=== PATIENT | female | born 1985 | race African-American/Black ===

== ENCOUNTER 2016-04-12 13:38 | Outpatient (CLI) | payer MEDICAID ==
--- NOTE | 2016-04-12 14:00 | L&D Flow Sheet ---
LD Flowsheet Datetime Report Generated by CPN: 04/12/2016 14:00 Datetime: 04/12/2016 13:56 Vital Signs NBP Sys/Angie/Mean (mmHg): 104 (QS system process) : 66 (QS system process) : 80 (QS system process) Pulse: 96 (QS system process)
[2016-04-12 14:11] LABS: APPEARANCE,URINE SLIGHTLY-CLOUDY; BILIRUBIN,URINE NEGATIVE (NEGATIVE); GLUCOSE, URINE 50 mg/dL (NEGATIVE); KETONES,URINE NEGATIVE (NEGATIVE); LEUKOCYTE ESTERASE,URINE TRACE (NEGATIVE); NITRITE,URINE NEGATIVE (NEGATIVE); PROTEIN,URINE NEGATIVE (NEGATIVE); URINE SPECIFIC GRAVITY 1.011
[2016-04-12 14:27] LABS: URINE BARBITURATES SCREEN NEGATIVE; URINE METHADONE SCREEN NEGATIVE; URINE OPIATES LOW NEGATIVE; URINE PHENCYCLIDINE SCREEN NEGATIVE
--- NOTE | 2016-04-12 16:00 | L&D Flow Sheet ---
LD Flowsheet Datetime Report Generated by CPN: 04/12/2016 16:00 Datetime: 04/12/2016 15:45 NBP Sys/Angie/Mean (mmHg): 129 (QS system process) : 91 (QS system process) : 104 (QS system process) Pulse: 88 (QS system process) LaborFlag: Antepartum (QS system process) Datetime: 04/12/2016 15:35 IV/Blood Work: Labs Drawn (Melissa Garcia, RN) Datetime: 04/12/2016 15:30 Monitor Mode: External; Palpation (Melissa Marlatt, RN) Frequency (min): irreg (Melissa Marlatt, RN) Quality: Mild (Melissa Marlatt, RN) Duration (sec): 40-60 (Melissa Marlatt, RN) Resting Tone (Palpate): Relaxed (Melissa Marlatt, RN) Monitor Mode: External US (Melissa Marlatt, RN) FHR Baseline Rate : 130 (Melissa Marlatt, RN) Variability: Moderate 6-25 bpm (Melissa Marlatt, RN) Accelerations: 15X15 (Melissa Marlatt, RN) Decelerations: None (Melissa Marlatt, RN) Datetime: 04/12/2016 15:18 Communication: Provider Orders Received (Melissa Marlatt, RN) Communication Comments: Order received from A. Emm[facility] for CBC with diff (Melissa Marlatt, RN) Datetime: 04/12/2016 15:17 Dilatation (cm): 3.0 (Melissa Garcia RN) Effacement (%): 50 (Melissa Garcia RN) Station: -2 (Melissa Garcia RN) Exam by: Alan Yen CNM (Melissa Garcia RN) Datetime: 04/12/2016 15:16 NBP Sys/Angie/Mean (mmHg): 113 (QS system process) : 75 (QS system process) : 88 (QS system process) Pulse: 95 (QS system process) Communication: RN at Bedside; Provider at Bedside (Melissa Garcia RN) Communication Comments: Alan Yen CNM at bedside assessing patient and discussing plan of care (Melissa Garcia RN) LaborFlag: Antepartum (QS system process) Datetime: 04/12/2016 15:00 Frequency (min): irreg (Melissa Garcia RN) Quality: Mild (Melissa Garcia RN) Duration (sec): 40-50 (Melissa Garcia RN) Resting Tone (Palpate): Relaxed (Melissa Garcia RN) Monitor Mode: External US (Melissa Garcia RN) FHR Baseline Rate : 130 (Melissa Garcia RN) Variability: Moderate 6-25 bpm (Melissa Garcia RN) Accelerations: 15X15 (Melissa Garcia RN) Decelerations: None (Melissa Garcia RN) IV/Blood Work: IV Started; IV Bolus Started (Melissa Garcia RN) Patient Care Comments: 18G right forearm (Melissa Garcia RN) Datetime: 04/12/2016 14:57 Provider Reviewed Strip: Yes (Melissa Garcia RN) Communication: Provider Orders Received; Call/Page Placed to Provider (Melissa Garcia RN) Provider Notified (Name): Alan Yen CNM (Melissa Garcia RN) Notification Reason: Status Update; Status; Uterine Activity; Pain; Lab/Diagnostic Study (Melissa Garcia RN) Communication Comments: Notified provider of patient's hx and complaints of contractions since 8am. Reviewed FHTs, CTXs, and urinalysis. Received order to give 1L LR bolus now (Melissa Garcia RN) Datetime: 04/12/2016 14:30 Monitor Mode: External; Palpation (Melissa Garcia RN) Frequency (min): irritability (Melissa Garcia RN) Quality: Mild (Melissa Garcia RN) Resting Tone (Palpate): Relaxed (Melissa Garcia RN) Contraction Comments: patient states she is cramping, one mild contraction palpated, TOCO adjusted and none picked up on TOCO (Melissa Garcia RN) Monitor Mode: External US (Melissa Garcia RN) FHR Baseline Rate : 135 (Melissa Garcia RN) Variability: Moderate 6-25 bpm (Melissa Garcia RN) Accelerations: 15X15 (Melissa Garcia RN) Decelerations: None (Melissa Garcia RN)
[2016-04-12 16:01] LABS: ABSOLUTE EOSINOPHILS # (AUTO) 0.1 10^3/uL (0.0-0.6); ABSOLUTE LYMPHOCYTES (AUTO) 2.7 10^3/uL (0.5-4.7); ABSOLUTE MONOCYTES (AUTO) 0.9 10^3/uL (0.1-1.4); ABSOLUTE NEUT (AUTO) 8.2 10^3/uL (1.7-8.2); BASOPHILS % (AUTO) 0.3 % (0-2); EOSINOPHILS % (AUTO) 1.1 % (0-6); HEMATOCRIT 32.1 % (36.0-47.0); HEMOGLOBIN 10.7 g/dL (12.0-15.5); LYMPHOCYTES % (AUTO) 22.2 % (13-45); MEAN CORPUSCULAR HEMOGLOBIN 28.3 pg (27.0-33.4); MEAN CORPUSCULAR HGB CONC 33.4 g/dL (32.0-36.0); MEAN CORPUSCULAR VOLUME 85 fl (80-97); MONOCYTES % (AUTO) 7.9 % (3-13); RED CELL DISTRIBUTION WIDTH 13.6 % (11.5-14.0); SEGMENTED NEUTROPHILS % (AUTO) 68.5 % (42-78)
[2016-04-12] MEDS ORDERED: NIFEDIPINE 10 MG CAPSULE ONE (16:21)
[2016-04-12] MEDS ORDERED: BETAMET ACET/BETAMET NA INJ 6 MG/1 ML ONE (16:21)
--- NOTE | 2016-04-12 18:00 | L&D Flow Sheet ---
LD Flowsheet Datetime Report Generated by CPN: 04/12/2016 18:00 Datetime: 04/12/2016 17:47 NBP Sys/Angie/Mean (mmHg): 121 (QS system process) : 56 (QS system process) : 80 (QS system process) Pulse: 98 (QS system process) LaborFlag: Antepartum (QS system process) Datetime: 04/12/2016 17:30 Monitor Mode: External; Palpation (Melissa Garcia, RN) Frequency (min): 6-13 (Melissa Lozoyalatt, RN) Quality: Mild/Moderate (Melissa Marlatt, RN) Duration (sec): 90-160 (Melissa Devoralatt, RN) Resting Tone (Palpate): Relaxed (Melissa Marlatt, RN) Monitor Mode: External US (Melissa Restrepott, RN) FHR Baseline Rate : 135 (Melissa Devoralatt, RN) Variability: Moderate 6-25 bpm (Melissa Marlatt, RN) Accelerations: 15X15 (Melissa Marlatt, RN) Decelerations: None (Melissa Marlatt, RN) Datetime: 04/12/2016 17:16 NBP Sys/Angie/Mean (mmHg): 111 (QS system process) : 57 (QS system process) : 78 (QS system process) Pulse: 93 (QS system process) LaborFlag: Antepartum (QS system process) Datetime: 04/12/2016 17:01 Monitor Interventions for UA: Raymer Adjusted (Melissa Garcia, RN) Datetime: 04/12/2016 17:00 Monitor Mode: External; Palpation (Melissa Marlatt, RN) Frequency (min): 3.5-12 (Melissa Marlatt, RN) Quality: Mild/Moderate (Melissa Marlatt, RN) Duration (sec): 60-80 (Melissa Marlatt, RN) Resting Tone (Palpate): Relaxed (Melissa Marlatt, RN) Monitor Mode: External US (Melissa Marlatt, RN) FHR Baseline Rate : 135 (Melissa Marlatt, RN) Variability: Moderate 6-25 bpm (Melissa Marlatt, RN) Accelerations: 15X15 (Melissa Marlatt, RN) Decelerations: None (Melissa Marlatt, RN) Datetime: 04/12/2016 16:46 NBP Sys/Angie/Mean (mmHg): 103 (QS system process) : 63 (QS system process) : 77 (QS system process) Pulse: 100 (QS system process) LaborFlag: Antepartum (QS system process) Datetime: 04/12/2016 16:33 I/O Interventions: Up to BR (Melissa Marlatt, RN) Datetime: 04/12/2016 16:32 IV/Blood Work: IV Infusing per Order; New IV Bag Hung (Melissa Marlatt, RN) Patient Care Comments: Lr at 125ml/hr (Melissa Marlatt, RN) Datetime: 04/12/2016 16:30 Monitor Mode: External; Palpation (Melissa Marlatt, RN) Frequency (min): 2-4 (Melissa Marlatt, RN) Quality: Mild/Moderate (Melissa Marlatt, RN) Duration (sec): 50-80 (Melissa Marlatt, RN) Resting Tone (Palpate): Relaxed (Melissa Marlatt, RN) Monitor Mode: External US (Melissa Marlatt, RN) FHR Baseline Rate : 135 (Melissa Marlatt, RN) Variability: Moderate 6-25 bpm (Melissa Marlatt, RN) Accelerations: 15X15 (Melissa Marlatt, RN) Decelerations: None (Melissa Marlatt, RN) Datetime: 04/12/2016 16:28 Medication Comments: Procardia 10mg PO (Melissa Marlatt, RN) Datetime: 04/12/2016 16:27 Steroids: Celestone 12mg IM - Dose 1 (Melissa Marlatt, RN) Medication Comments: Left (Melissa Marlatt, RN) Datetime: 04/12/2016 16:17 NBP Sys/Angie/Mean (mmHg): 125 (QS system process) : 67 (QS system process) : 88 (QS system process) Pulse: 81 (QS system process) LaborFlag: Antepartum (QS system process) Datetime: 04/12/2016 16:10 Communication: Provider Orders Received (Melissa Garcia RN) Provider Notified (Name): Alan Yen CNM/ Dr. Prado (Melissa Garcia RN) Communication Comments: Alan Yen CNM notified Dr. Prado about patients FHTs, CTXs, SVE, and lab results. Received order to give 1st Betamethasone shot now, give 10mg of Procardia now and give patient RX to take 10mg of Procardia every 6 hrs, hang second bag of LR at 125ml/hr and reecheck at 6pm. If unchange discharge patient home and have her return tomorrow for her second betamethasone shot. (Melissa Garcia RN) Datetime: 04/12/2016 16:00 Monitor Mode: External; Palpation (Melissa Garcia RN) Frequency (min): 2.5-4.5 (Melissa Garcia RN) Quality: Mild/Moderate (Melissa Garcia RN) Duration (sec): 70-120 (Melissa Garcia RN) Resting Tone (Palpate): Relaxed (Melissa Garcia RN) Monitor Mode: External US (Melissa Garcia RN) FHR Baseline Rate : 135 (Melissa Garcia RN) Variability: Moderate 6-25 bpm (Melissa Garcia RN) Accelerations: 15X15 (Melissa Garcia RN) Decelerations: None (Melissa Garcia RN)
--- NOTE | 2016-04-12 18:23 | Non Stress Test Report ---
Non Stress Test Datetime Report Generated by CPN: 04/12/2016 18:23 DEMOGRAPHIC EGA NST: 33.2 INDICATION Indication for Study: labor MONITORING Monitor Explained: Monitor Explained; Test Explained; Patient Verbalized Understanding Time on Monitor: 04/12/2016 14:18 Time off Monitor: 04/12/2016 17:58 NST Duration: 220 NST INTERVENTIONS NST Interventions: PO Hydration Physician Notified NST: Dr. Johan BABY A: [id number] BABY A Movement : Present Contraction Frequency : 3-13 FHR Baseline : 135 Accelerations : 15X15 Decelerations : None Variability : Moderate 6-25bpm NST Review: Meets Criteria for Reactive NST NST Review and Verified By : Jackeline Cartagena RNC NST Results: Reactive NST REPORT Report Trigger: Send Report
== END 2016-04-12 18:16 | disposition home or self-care (01) ==
LOC: ER 13:38 → LC 13:38 → EDSTATUS 13:45 → LC 18:16
PROVIDERS: ATTEND Obstetrics & Gynecology
PROC: 4A1HXCZ Monitoring of Products of Conception, Cardiac Rate, External Approach (ICD-10-PCS; principal; 2016-04-12)
DX: O47.03 False labor before 37 completed weeks of gestation, third trimester (principal); Z3A.32 32 weeks gestation of pregnancy
CPT/HCPCS: 59025; 36415; 85025; 81005; 80307; J3490; J0702

== ENCOUNTER 2016-04-13 16:28 | Outpatient (CLI) | payer MEDICAID ==
[2016-04-13] MEDS ORDERED: BETAMET ACET/BETAMET NA INJ 6 MG/1 ML ONE (16:36)
[2016-04-13] MEDS ORDERED: BETAMET ACET/BETAMET NA INJ 6 MG/1 ML IM ONE (17:06)
== END 2016-04-13 16:41 | disposition admitted as inpatient to this hospital (09) ==
LOC: LC 16:28
PROVIDERS: ATTEND Obstetrics & Gynecology
PROC: 4A1HXCZ Monitoring of Products of Conception, Cardiac Rate, External Approach (ICD-10-PCS; principal; 2016-04-13)
DX: O47.03 False labor before 37 completed weeks of gestation, third trimester (principal); Z3A.32 32 weeks gestation of pregnancy
CPT/HCPCS: 59025; J0702

== ENCOUNTER 2016-05-05 17:17 | Outpatient (CLI) | payer MEDICAID ==
[2016-05-05 17:50] LABS: APPEARANCE,URINE SLIGHTLY-CLOUDY; BILIRUBIN,URINE NEGATIVE (NEGATIVE); GLUCOSE, URINE 50 mg/dL (NEGATIVE); KETONES,URINE NEGATIVE (NEGATIVE); LEUKOCYTE ESTERASE,URINE NEGATIVE (NEGATIVE); NITRITE,URINE NEGATIVE (NEGATIVE); PROTEIN,URINE NEGATIVE (NEGATIVE)
--- NOTE | 2016-05-05 18:00 | L&D Flow Sheet ---
LD Flowsheet Datetime Report Generated by CPN: 05/05/2016 18:00 Datetime: 05/05/2016 17:56 Vital Signs NBP Sys/Angie/Mean (mmHg): 108 (QS system process) : 68 (QS system process) : 82 (QS system process) Pulse: 83 (QS system process) Communication LaborFlag: Antepartum (QS system process) Datetime: 05/05/2016 17:46 Maternal Assessment Level of Consciousness: Fully Conscious (Daniel Scott, SN) DTR's/Clonus: DTRs 1+; No Clonus (Daniel Scott, SN) Breath Sounds, Right: Clear and Equal (Daniel Scott, SN) Nausea/Vomiting: Denies (Daniel Scott, SN) RUQ Epigastric Pain: Denies (Daniel Scott, SN)
[2016-05-05 18:06] LABS: URINE BARBITURATES SCREEN NEGATIVE; URINE METHADONE SCREEN NEGATIVE; URINE OPIATES LOW NEGATIVE; URINE PHENCYCLIDINE SCREEN NEGATIVE
--- NOTE | 2016-05-05 20:00 | L&D Flow Sheet ---
LD Flowsheet Datetime Report Generated by CPN: 05/05/2016 20:00 Datetime: 05/05/2016 19:55 NBP Sys/Angie/Mean (mmHg): 107 (QS system process) : 70 (QS system process) : 84 (QS system process) Pulse: 74 (QS system process) LaborFlag: Antepartum (QS system process) Datetime: 05/05/2016 19:45 Dilatation (cm): 3.0 (Bethany Ruiz) Effacement (%): 50 (Bethany Ruiz) Station: -1 (Bethany Ruiz) Exam by: Araceli Ruiz Rn (Bethany Ruiz) Datetime: 05/05/2016 19:26 NBP Sys/Angie/Mean (mmHg): 101 (QS system process) : 62 (QS system process) : 77 (QS system process) Pulse: 88 (QS system process) LaborFlag: Antepartum (QS system process) Datetime: 05/05/2016 19:05 Communication Comments: Report given to Alan Ruiz RN. care relinquished. (Xochitl Vivas, RN) Datetime: 05/05/2016 19:00 Monitor Mode: External; Palpation (Daniel Scott, SN) Frequency (min): 1-5 (Daniel Scott, SN) Quality: Mild (Daniel Scott, SN) Duration (sec): 50-90 (Daniel Scott, SN) Resting Tone (Palpate): Relaxed (Daniel Scott, SN) Monitor Mode: External US (Daniel Scott, SN) FHR Baseline Rate : 140 (Daniel Scott, SN) Variability: Moderate 6-25 bpm (Daniel Scott, SN) Accelerations: 15X15 (Daniel Scott, SN) Decelerations: None (Daniel Scott, SN) Datetime: 05/05/2016 18:55 NBP Sys/Angie/Mean (mmHg): 99 (QS system process) : 66 (QS system process) : 79 (QS system process) Pulse: 73 (QS system process) LaborFlag: Antepartum (QS system process) Datetime: 05/05/2016 18:43 Dilatation (cm): 3.0 (Xochitl Sangeetha, RN) Effacement (%): 50 (Xochitl Sangeetha, RN) Station: -1 (Xochitl Sangeetha, RN) Exam by: Sondra Vivas RN (Xochitl Sangeetha, RN) Datetime: 05/05/2016 18:30 Monitor Mode: External (Daniel Scott, SN) Frequency (min): Irregular (Daniel Scott, SN) Quality: Mild (Daniel Scott, SN) Duration (sec): 30-80 (Daniel Scott, SN) Pattern: Normal: <= 5 Contractions in 10 Minutes (Daniel Scott, SN) Resting Tone (Palpate): Relaxed (Daniel Scott, SN) Monitor Mode: External US (Daniel Scott, SN) FHR Baseline Rate : 135 (Daniel Scott, SN) Variability: Moderate 6-25 bpm (Daniel Scott, SN) Accelerations: 15X15 (Daniel Scott, SN) Decelerations: None (Daniel Scott, SN) Datetime: 05/05/2016 18:25 NBP Sys/Angie/Mean (mmHg): 98 (QS system process) : 61 (QS system process) : 74 (QS system process) Pulse: 76 (QS system process) LaborFlag: Antepartum (QS system process) Datetime: 05/05/2016 18:00 Monitor Mode: External (Daniel Scott, SN) Frequency (min): Irregular (Daniel Scott, SN) Quality: Mild (Daniel Scott, SN) Duration (sec): 30-80 (Daniel Scott, SN) Pattern: Normal: <= 5 Contractions in 10 Minutes (Danieldeyn SewellScott SN) Resting Tone (Palpate): Relaxed (Daniel Sewellrey SN) Monitor Mode: External US (Daniel Sewellrey, SN) FHR Baseline Rate : 140 (Daniel Scott, SN) Variability: Moderate 6-25 bpm (Daniel Scott, SN) Accelerations: 15X15 (Daniel Scott, SN) Decelerations: None (Daniel Scott, SN) Patient Position/Activity: Semi-Fowlers (Daniel Sewellrey, SN)
--- NOTE | 2016-05-05 20:06 | Non Stress Test Report ---
Non Stress Test Datetime Report Generated by CPN: 05/05/2016 20:06 DEMOGRAPHIC EGA NST: 36.4 INDICATION Indication for Study: Ordered by Provider Indication for Study (NST) Other: Labor check MONITORING Monitor Explained: Monitor Explained; Test Explained; Patient Verbalized Understanding Time on Monitor: 05/05/2016 17:41 Time off Monitor: 05/05/2016 20:05 NST Duration: 144 NST INTERVENTIONS NST Interventions: PO Hydration; Reposition Patient Physician Notified NST: Dr. Morel BABY A: [id number] BABY A Movement : Present Contraction Frequency : 3-6 FHR Baseline : 130 Accelerations : 15X15 Decelerations : None Variability : Moderate 6-25bpm NST Review: Meets Criteria for Reactive NST NST Review and Verified By : JITENDRA MCDOWELL Results: Reactive NST REPORT Report Trigger: Send Report
== END 2016-05-05 20:08 | disposition home or self-care (01) ==
LOC: LC 17:17
PROVIDERS: ATTEND Obstetrics & Gynecology
PROC: 4A1HXCZ Monitoring of Products of Conception, Cardiac Rate, External Approach (ICD-10-PCS; principal; 2016-05-05)
DX: O47.03 False labor before 37 completed weeks of gestation, third trimester (principal); Z3A.36 36 weeks gestation of pregnancy
CPT/HCPCS: 59025; 80307; 81005

== ENCOUNTER 2016-05-22 08:50 | Inpatient (IN) | payer MEDICAID ==
[2016-05-22] MEDS ORDERED: OXYTOCIN/NORMAL SALINE 1,000 ML IV PRN ×2 (09:34→13:15)
[2016-05-22] MEDS ORDERED: RINGERS SOLUTION,LACTATED 1,000 ML IV PRN (09:34)
[2016-05-22] MEDS ORDERED: RINGERS SOLUTION,LACTATED 300 ML IV ONE (09:34)
[2016-05-22 09:37] LABS: APPEARANCE,URINE SLIGHTLY-CLOUDY; BILIRUBIN,URINE NEGATIVE (NEGATIVE); GLUCOSE, URINE NEGATIVE (NEGATIVE); KETONES,URINE NEGATIVE (NEGATIVE); LEUKOCYTE ESTERASE,URINE SMALL (NEGATIVE); NITRITE,URINE NEGATIVE (NEGATIVE); PROTEIN,URINE NEGATIVE (NEGATIVE); URINE SPECIFIC GRAVITY 1.006; UROBILINOGEN,URINE NEGATIVE mg/dL (<2.0)
[2016-05-22 09:52] LABS: URINE BARBITURATES SCREEN NEGATIVE; URINE METHADONE SCREEN NEGATIVE; URINE OPIATES LOW NEGATIVE; URINE PHENCYCLIDINE SCREEN NEGATIVE
[2016-05-22 10:07] LABS: ABSOLUTE EOSINOPHILS # (AUTO) 0.1 10^3/uL (0.0-0.6); ABSOLUTE LYMPHOCYTES (AUTO) 1.6 10^3/uL (0.5-4.7); ABSOLUTE MONOCYTES (AUTO) 0.7 10^3/uL (0.1-1.4); ABSOLUTE NEUT (AUTO) 4.1 10^3/uL (1.7-8.2); BASOPHILS % (AUTO) 0.4 % (0-2); EOSINOPHILS % (AUTO) 1.9 % (0-6); HEMATOCRIT 33.1 % (36.0-47.0); HEMOGLOBIN 11.5 g/dL (12.0-15.5); HGB HCT DIFFERENCE 1.4; LYMPHOCYTES % (AUTO) 24.9 % (13-45); MEAN CORPUSCULAR HEMOGLOBIN 28.9 pg (27.0-33.4); MEAN CORPUSCULAR HGB CONC 34.7 g/dL (32.0-36.0); MEAN CORPUSCULAR VOLUME 83 fl (80-97); MONOCYTES % (AUTO) 10.1 % (3-13); RED BLOOD COUNT 3.97 10^6/uL (3.72-5.28); SEGMENTED NEUTROPHILS % (AUTO) 62.7 % (42-78); WHITE BLOOD COUNT 6.6 10^3/uL (4.0-10.5)
[2016-05-22] MEDS ORDERED: EPHEDRINE SULFATE INJ 50 MG/1 ML AMPULE ONE (12:12)
[2016-05-22] MEDS ORDERED: FENTANYL/BUPIVACAINE/NS/PF 200 MCG/100 ML RTUINJ EPI ONE (12:12)
[2016-05-22] MEDS ORDERED: BUPIVACAINE HCL 0.25 % INJ/PF (2.5 MG/1 ML) 30 ML VIAL ONE (12:12)
[2016-05-22] MEDS ORDERED: LIDOCAINE 1% INJ-PF (10 MG/ML) 30 ML SDV ONE (12:51)
[2016-05-22] MEDS ORDERED: MISOPROSTOL 0.2 MG TABLET ONE ×2 (12:51→12:52)
[2016-05-22] MEDS ORDERED: OXYTOCIN/NORMAL SALINE 20 UNIT/1,000 ML RTUINJ ONE (12:52)
[2016-05-22] MEDS ORDERED: MAGNESIUM HYDROXIDE SUSP 30 ML UDCUP PO PRN (13:15)
[2016-05-22] MEDS ORDERED: DIPHENHYDRAMINE HCL 25 MG CAPSULE PO PRN (13:15)
[2016-05-22] MEDS ORDERED: PROMETHAZINE HCL 25 MG TABLET PO PRN (13:15)
[2016-05-22] MEDS ORDERED: PROMETHAZINE HCL 25 MG SUPP.RECT PR PRN (13:15)
[2016-05-22] MEDS ORDERED: MEASLES,MUMPS&RUBELLA VACC/PF 0.5 ML VIAL SUBCUT PRN (13:15)
[2016-05-22] MEDS ORDERED: DIPH/PERTUSS(ACELL)/TETANUS VAC/PF 0.5 ML SYR (>=10YO) IM PRN (13:15)
[2016-05-22] MEDS ORDERED: PROMETHAZINE HCL INJ 25 MG/1 ML VIAL IV PRN (13:15)
[2016-05-22] MEDS ORDERED: GLYCERIN/WITCH HAZEL LEAF 1 EACH MED..PAD TP PRN (13:15)
[2016-05-22] MEDS ORDERED: DIBUCAINE 1% OINTMENT 28 GM TP PRN (13:15)
[2016-05-22] MEDS ORDERED: MISOPROSTOL 0.2 MG TABLET PR ONE (13:15)
[2016-05-22] MEDS ORDERED: BENZOCAINE/MENTHOL AEROSOL SPRAY 56 ML TOP PRN (13:15)
[2016-05-22] MEDS ORDERED: ACETAMINOPHEN 650 MG SUPP.RECT PR PRN (13:15)
[2016-05-22] MEDS ORDERED: NA PHOS,M-B/NA PHOS,DI-BA (ADULT) 133 ML ENEMA PR PRN (13:15)
[2016-05-22] MEDS ORDERED: PSEUDOEPHEDRINE HCL 30 MG TABLET PO PRN (13:15)
[2016-05-22] MEDS ORDERED: ACETAMINOPHEN WITH CODEINE #3 TABLET ONE (15:23)
[2016-05-22] MEDS: ACETAMINOPHEN WITH CODEINE #3 TABLET PO PRN ×2 (15:23→19:39)
--- NOTE | 2016-05-22 16:23 | Admission Physical ---
Datetime Report Generated by CPN: 05/22/2016 16:23 CURRENT ADMISSION Hx Assessment: The History has been Reviewed and is Current Chief Complaint: Uterine Contractions; Other Chief Complaint Other: Advanced dilation Admit Plan: Admit to Unit; Initiate Labor Augmentation Protocol ALLERGIES Medication Allergies: No Medication Allergies: No Known Allergies (05/22/2016) Medication Allergies: No Known Allergies (04/12/2016) Medication Allergies: No Known Allergies (10/16/2014) Latex: No Latex Allergies OBSTETRICAL HISTORY EDC: 05/29/2016 00:00 : 6 Para: 5 Para: 5 Term: 4 : 1 SAB: 0 IAB: 0 Ectopic: 0 Livin Cesareans: 0 VBACs: 0 Multiple Births: 0 Gestational Diabetes: No Rh Sensitization: No Incompetent Cervix: No YONI: No Infertility: No ART Treatment: No Uterine Anomaly: No IUGR: No Hx Previous C/S: No Macrosomia: No Hx Loss/Stillborn: No PIH: No Hx : No Placenta Previa/Abruption: Yes Depression/PP Depression: Yes PTL/PROM: No Post Hemorrhage: No Current Procedures: Ultrasound; NST Obstetrical History Comments: G1: 03/2002 40weeks, 6#3oz - patient states she had a partial placenta abruption, it started tearing away but never did completely G2: 06/2005 37 weeks, 6#4oz G3: 04/2008 40 weeks, 6#13oz G4: 08/2012 38 weeks, 5#11oz G5: 10/17/2014 37.6 weeks, 6#1oz G6: current. late PNC, didn't discover she was until 5 months along SEE RECORDS Alcohol: No Marijuana : No Cocaine: No Other Illicit Drugs: No Cigarettes: Current Everyday Smoker. [id number] Cigarette Frequency: < 5 per day Advised to Stop: Yes MEDICAL HISTORY Diabetes: No Blood Transfusion: No Pulmonary Disease (Asthma, TB): No Breast Disease: No Hypertension: No [employer]er Surgery: No Heart Disease: No Hosp/Surgery: Yes Autoimmune Disorder: No Anesthetic Complications: No Kidney Disease: No Abnormal Pap Smear: Yes Neuro/Epilepsy: No Psychiatric Disorders: Yes Other Medical Diseases: Yes Hepatitis/Liver Disease: No Significant Family History: No Varicosities/Phlebitis: No Trauma/Violence : No Thyroid Dysfunction: No Medical History Comments: Sickle cell crisis at age 18, depression and bipolar - no meds. abnormal pap 2016 INFECTIOUS HISTORY Gonorrhea: No Genital Herpes: No Chlamydia: No Tuberculosis: No Syphilis: No Hepatitis: No HIV/AIDS Exposure: No Rash or Viral Illness: No HPV: No PHYSICAL EXAM General: Normal HEENT: Normal Neurologic: Normal Thyroid: Normal Heart: Normal Lungs: Normal Breast: Deferred Back: Normal Abdomen: Normal Genitourinary Exam: Normal Extremities: Normal DTRs: Normal Pelvic Type: Adequate Physical Exam Comments: Hgb S trait x 5 Vital Signs: Reviewed FETUS A EGA: 39.0 FHR- Baseline: 155 Variability: Moderate 6-25bpm Admit Comment: Admitted to L_D for advanced dilatation and irregular uc's and grandmultip seen at [facility] yesterday and was 4 cm, saw Dr. Best today and was 5, sent over for delivery 39 weeks, Cat 1 stri[. Dr. Barger aware of admission PLANS FOR LABOR AND DELIVERY Pain Management: Epidural Feeding Preference: Breast Benefit of Breast Feed Discussed: Yes Circumcision: Yes INFORMED CONSENT Assignment: Aaron Barger DO Signature: with User ID: [email or web address] : with User ID: [email or web address]
[2016-05-22] MEDS: IBUPROFEN 800 MG TABLET PO SCH ×2 (16:32→21:22)
[2016-05-22] MEDS ORDERED: ONDANSETRON 4 MG TAB.RAPDIS PO PRN (17:53)
[2016-05-22] MEDS: DOCUSATE SODIUM 100 MG CAPSULE PO SCH (18:09)
[2016-05-22] MEDS: FERROUS SULFATE 325 MG TABLET PO SCH (18:10)
--- NOTE | 2016-05-22 19:01 | L&D Flow Sheet ---
LD Flowsheet Datetime Report Generated by CPN: 05/22/2016 19:00 Datetime: 05/22/2016 16:05 NBP Sys/Angie/Mean (mmHg): 107 (QS system process) : 63 (QS system process) : 79 (QS system process) Pulse: 55 (QS system process) Datetime: 05/22/2016 15:50 NBP Sys/Angie/Mean (mmHg): 105 (QS system process) : 64 (QS system process) : 79 (QS system process) Pulse: 71 (QS system process) Datetime: 05/22/2016 15:35 NBP Sys/Angie/Mean (mmHg): 113 (QS system process) : 73 (QS system process) : 86 (QS system process) Pulse: 56 (QS system process) Datetime: 05/22/2016 15:20 NBP Sys/Angie/Mean (mmHg): 114 (QS system process) : 71 (QS system process) : 87 (QS system process) Pulse: 56 (QS system process) Datetime: 05/22/2016 14:50 NBP Sys/Angie/Mean (mmHg): 122 (QS system process) : 65 (QS system process) : 90 (QS system process) Pulse: 56 (QS system process) Datetime: 05/22/2016 14:35 NBP Sys/Angie/Mean (mmHg): 113 (QS system process) : 68 (QS system process) : 86 (QS system process) Pulse: 64 (QS system process) Datetime: 05/22/2016 14:20 NBP Sys/Angie/Mean (mmHg): 108 (QS system process) : 69 (QS system process) : 81 (QS system process) Pulse: 91 (QS system process) Datetime: 05/22/2016 14:12 NBP Sys/Angie/Mean (mmHg): 118 (QS system process) : 71 (QS system process) : 89 (QS system process) Pulse: 82 (QS system process) Datetime: 05/22/2016 14:06 NBP Sys/Angie/Mean (mmHg): 76 (QS system process) : 53 (QS system process) : 61 (QS system process) Pulse: 81 (QS system process) Communication Comments: incorrect blood pressure reading due to patient movement (Daniela Prado RN) Datetime: 05/22/2016 13:50 NBP Sys/Angie/Mean (mmHg): 110 (QS system process) : 66 (QS system process) : 83 (QS system process) Pulse: 160 (QS system process) Datetime: 05/22/2016 13:36 NBP Sys/Angie/Mean (mmHg): 110 (QS system process) : 55 (QS system process) : 79 (QS system process) Pulse: 92 (QS system process) Datetime: 05/22/2016 13:20 NBP Sys/Angie/Mean (mmHg): 102 (QS system process) : 56 (QS system process) : 76 (QS system process) Pulse: 95 (QS system process) Datetime: 05/22/2016 13:06 Medications Cervical Ripening Agents: Cytotec @ 1000 (Daniela Johan, RN) Datetime: 05/22/2016 13:05 NBP Sys/Angie/Mean (mmHg): 101 (QS system process) : 60 (QS system process) : 73 (QS system process) Pulse: 79 (QS system process) Datetime: 05/22/2016 13:04 Vital Signs Stage of : Recovery (Laura Rivas, RN) Datetime: 05/22/2016 13:00 Uterine Activity Monitor Mode: External; Palpation (Daniela Prado RN) Frequency (min): 3-4 (Daniela Prado RN) Quality: Mild/Moderate (Daniela Prado RN) Duration (sec): 60-90 (Daniela Prado RN) Duration Criteria: Less than Two 120 Second Contractions (Daniela Prado RN) Pattern: Normal: <= 5 Contractions in 10 Minutes (Dnaiela Prado RN) Resting Tone (Palpate): Relaxed (Daniela Prado RN) Assessment A Monitor Mode: External US (Daniela Prado, RN) FHR Baseline Rate : 135 (Daniela Prado, RN) Variability: Moderate 6-25 bpm (Daniela Prado, RN) Accelerations: 10X10 (Daniela Prado, RN) Decelerations: None (Daniela Prado, RN) Datetime: 05/22/2016 12:54 Stage 2 Pushing: Coached on Pushing (Laura Rivas RN) Pushing Position: Pushing with Contractions (Laura Rivas RN) Stage 2 Comments: RN and provder J Lambert CNM to remain at bedside throughout second stage continuously assessing FHR while pt pushing with contractions (Laura Rivas, RN) Datetime: 05/22/2016 12:50 NBP Sys/Angie/Mean (mmHg): 108 (QS system process) : 66 (QS system process) : 78 (QS system process) Pulse: 81 (QS system process) Preparation for Delivery: Setup for Delivery (Laura Rivas RN) Communication Comments: Rufino Lambert CNKwesi at bedside (Laura Rivas RN) LaborFlag: Antepartum (QS system process) Datetime: 05/22/2016 12:49 NBP Sys/Angie/Mean (mmHg): 122 (QS system process) : 72 (QS system process) : 92 (QS system process) Pulse: 79 (QS system process) Vaginal Exam Dilatation (cm): 10.0 (Laura Rivas RN) Effacement (%): 100 (Laura Rivas, RN) Station: 2 (Laura Rivas RN) Exam by: KwesiMacho Prado RN (Laura Rivas RN) LaborFlag: Antepartum (QS system process) Datetime: 05/22/2016 12:48 NBP Sys/Angie/Mean (mmHg): 108 (QS system process) : 59 (QS system process) : 80 (QS system process) Pulse: 69 (QS system process) LaborFlag: Antepartum (QS system process) Datetime: 05/22/2016 12:47 Anesthesia Level Check: T10- Umbilicus (Laura Rivas, JITENDRA) Datetime: 05/22/2016 12:45 NBP Sys/Angie/Mean (mmHg): 108 (QS system process) : 67 (QS system process) : 82 (QS system process) Pulse: 65 (QS system process) Uterine Activity Monitor Mode: External; Palpation (Daniela Prado RN) Frequency (min): 1.5-3 (Daniela Prado RN) Quality: Mild/Moderate (Daniela Prado RN) Duration (sec): 60-100 (Daniela Prado RN) Duration Criteria: Less than Two 120 Second Contractions (Daniela Prado RN) Pattern: Normal: <= 5 Contractions in 10 Minutes (Daniela Prado RN) Resting Tone (Palpate): Relaxed (Daniela Prado RN) Assessment A Monitor Mode: External US (Daniela Prado RN) FHR Baseline Rate : 135 (Daniela Prado RN) Variability: Moderate 6-25 bpm (Daniela Prado RN) Accelerations: 15X15 (Daniela Prado RN) Decelerations: None (Daniela Prado RN) Epidural Procedure Other: Pump Started (Laura Rivas RN) LaborFlag: Antepartum (QS system process) Datetime: 05/22/2016 12:44 NBP Sys/Angie/Mean (mmHg): 105 (QS system process) : 63 (QS system process) : 80 (QS system process) Pulse: 70 (QS system process) Pulse: 68 (QS system process) SpO2 (%): 100 (QS system process) LaborFlag: Antepartum (QS system process) Datetime: 05/22/2016 12:43 NBP Sys/Angie/Mean (mmHg): 113 (QS system process) : 64 (QS system process) : 84 (QS system process) Pulse: 67 (QS system process) LaborFlag: Antepartum (QS system process) Datetime: 05/22/2016 12:42 NBP Sys/Angie/Mean (mmHg): 114 (QS system process) : 66 (QS system process) : 84 (QS system process) Pulse: 63 (QS system process) LaborFlag: Antepartum (QS system process) Datetime: 05/22/2016 12:41 NBP Sys/Angie/Mean (mmHg): 104 (QS system process) : 64 (QS system process) : 78 (QS system process) Pulse: 64 (QS system process) Epidural Procedure: Loading Dose (Lauraraad Rivas, RN) LaborFlag: Antepartum (QS system process) Datetime: 05/22/2016 12:40 Epidural Procedure: Cath Placed; Test Dose (Laura Rivas, RN) Datetime: 05/22/2016 12:39 Pulse: 71 (QS system process) SpO2 (%): 100 (QS system process) LaborFlag: Antepartum (QS system process) Datetime: 05/22/2016 12:34 Pulse: 69 (QS system process) SpO2 (%): 100 (QS system process) LaborFlag: Antepartum (QS system process) Datetime: 05/22/2016 12:31 NBP Sys/Angie/Mean (mmHg): 129 (QS system process) : 71 (QS system process) : 93 (QS system process) Pulse: 64 (QS system process) LaborFlag: Antepartum (QS system process) Datetime: 05/22/2016 12:30 Uterine Activity Monitor Mode: External; Palpation (Daniela Prado RN) Quality: Mild/Moderate (Daniela Prado RN) Duration Criteria: Less than Two 120 Second Contractions (Daniela Prado RN) Pattern: Normal: <= 5 Contractions in 10 Minutes (Daniela Prado RN) Resting Tone (Palpate): Relaxed (Daniela Prado RN) Contraction Comments: unable to determine due to patient movement, RN at bedside adjusting monitor (Daniela Prado RN) Assessment A Monitor Mode: External US (Daniela Prado RN) FHR Baseline Rate : 135 (Daniela Prado RN) FHR Baseline Changes: No Baseline Change (Daniela Prado RN) Variability: Moderate 6-25 bpm (Daniela Prado RN) Accelerations: 15X15 (Daniela Prado RN) Decelerations: None (Daniela Prado RN) Datetime: 05/22/2016 12:29 Pulse: 65 (QS system process) SpO2 (%): 100 (QS system process) Procedure TIME OUT Procedure Verify: Correct Patient Identity; Correct Side and Site are Marked; Accurate Procedure Consent Form; Agreement on Procedure to be Done; Correct Patient Position (Laura Rivas RN) Epidural Positioning: Sitting (Laura Rivas RN) Anesthesia Comments: Dr Laurent at bedside (Laura Rivas, RN) LaborFlag: Antepartum (QS system process) Datetime: 05/22/2016 12:23 Procedure TIME OUT Procedure Verify: Correct Patient Identity; Correct Side and Site are Marked; Accurate Procedure Consent Form; Agreement on Procedure to be Done (Laura Rivas RN) Anesthesia Comments: Dr Anastasiia called (Laura Rivas, RN) Datetime: 05/22/2016 12:16 NBP Sys/Angie/Mean (mmHg): 128 (QS system process) : 73 (QS system process) : 94 (QS system process) Pulse: 81 (QS system process) LaborFlag: Antepartum (QS system process) Datetime: 05/22/2016 12:15 Uterine Activity Monitor Mode: External; Palpation (Daniela Prado RN) Frequency (min): 3-5 (Daniela Prado RN) Quality: Mild/Moderate (Daniela Prado RN) Duration (sec): 50-110 (Daniela Prado RN) Duration Criteria: Less than Two 120 Second Contractions (Daniela Prado RN) Pattern: Normal: <= 5 Contractions in 10 Minutes (Daniela Prado RN) Resting Tone (Palpate): Relaxed (Daniela Prado RN) Assessment A Monitor Mode: External US (Daniela Johan, RN) FHR Baseline Rate : 140 (Daniela Prado, RN) Variability: Moderate 6-25 bpm (Daniela Johan, RN) Accelerations: 15X15 (Daniela Johan, RN) Decelerations: None (Daniela Johan, RN) Datetime: 05/22/2016 12:06 Patient Care IV/Blood Work: New IV Bag Hung (Daniela Johan, RN) Datetime: 05/22/2016 12:05 Temperature (F): 98.2 (Daniela Prado, RN) Temperature (C): 36.8 (QS system process) Temperature Route: Oral (Daniela Prado, RN) LaborFlag: Antepartum (QS system process) Datetime: 05/22/2016 12:01 NBP Sys/Angie/Mean (mmHg): 117 (QS system process) : 70 (QS system process) : 89 (QS system process) Pulse: 71 (QS system process) LaborFlag: Antepartum (QS system process) Datetime: 05/22/2016 12:00 Uterine Activity Monitor Mode: External; Palpation (Daniela Johan, RN) Frequency (min): 4-5 (Daniela Johan, RN) Quality: Mild (Daniela Johan, RN) Duration (sec): 50-80 (Daniela Johan, RN) Duration Criteria: Less than Two 120 Second Contractions (Daniela Johan, RN) Pattern: Normal: <= 5 Contractions in 10 Minutes (Daniela Johan, RN) Resting Tone (Palpate): Relaxed (Daniela Johan, RN) Assessment A Monitor Mode: External US (Daniela Johan, RN) FHR Baseline Rate : 140 (Daniela Johan, RN) Variability: Moderate 6-25 bpm (Daniela Johan, RN) Accelerations: 15X15 (Daniela Johan, RN) Decelerations: None (Daniela Johan, RN) Pain Assessment Comments: patient requesting epidural (Daniela Prado, RN) Procedure TIME OUT Procedure Verify: Correct Patient Identity; Correct Side and Site are Marked; Accurate Procedure Consent Form; Agreement on Procedure to be Done; Correct Patient Position; Relevant Images and Results are Properly Labeled and Displayed; Addressed Need to Administer Antibiotics or Fluids for Irrigation; Safety Precautions Based on Patient History or Medication Use (Daniela Prado RN) Anesthesia Anesthesia Plans: Epidural (Daniela Prado RN) LaborFlag: Antepartum (QS system process) Datetime: 05/22/2016 11:46 NBP Sys/Angie/Mean (mmHg): 118 (QS system process) : 69 (QS system process) : 88 (QS system process) Pulse: 54 (QS system process) LaborFlag: Antepartum (QS system process) Datetime: 05/22/2016 11:31 NBP Sys/Angie/Mean (mmHg): 116 (QS system process) : 67 (QS system process) : 85 (QS system process) Pulse: 67 (QS system process) LaborFlag: Antepartum (QS system process) Datetime: 05/22/2016 11:30 Uterine Activity Monitor Mode: External; Palpation (Daniela Prado RN) Frequency (min): 5-6 (Daniela Prado RN) Quality: Mild (Daniela Prado RN) Duration (sec): 60-90 (Daniela Prado RN) Duration Criteria: Less than Two 120 Second Contractions (Daniela Prado RN) Pattern: Normal: <= 5 Contractions in 10 Minutes (Daniela Prado RN) Resting Tone (Palpate): Relaxed (Daniela Prado RN) Assessment A Monitor Mode: External US (Daniela Prado, RN) FHR Baseline Rate : 145 (Daniela Prado, RN) Variability: Moderate 6-25 bpm (Daniela Prado, RN) Accelerations: 15X15 (Daniela Prado, RN) Decelerations: None (Daniela Prado, RN) Datetime: 05/22/2016 11:14 Patient Position/Activity: Left Tilt; Low Fowlers (Daniela Johan, RN) Datetime: 05/22/2016 11:09 I/O Interventions: Up to BR (Daniela Johan, RN) Datetime: 05/22/2016 11:06 Vaginal Exam Dilatation (cm): 5.0 (Daniela Prado RN) Effacement (%): 60 (Daniela Prado RN) Station: -1 (Daniela Prado RN) Exam by: Rufino Lambert CNM (Daniela Prado RN) Membrane Status: Ruptured (Daniela Prado RN) Membranes Rupture Method: Artificial (Daniela Prado RN) Amniotic Fluid Color: Clear (Daniela Prado RN) Amniotic Fluid Amount: Small (Daniela Prado RN) Amniotic Fluid Odor: Normal (Daniela Prado RN) Vaginal Bleeding: None (Daniela Prado RN) Cervix, Consistency: Soft (Daniela Prado RN) Cervix, Position: Midposition (Daniela Prado, JITENDRA) Datetime: 05/22/2016 11:03 Communication Communication: Provider at Bedside (Daniela Johan, RN) Datetime: 05/22/2016 11:01 NBP Sys/Angie/Mean (mmHg): 111 (QS system process) : 67 (QS system process) : 83 (QS system process) Pulse: 71 (QS system process) LaborFlag: Antepartum (QS system process) Datetime: 05/22/2016 11:00 Uterine Activity Monitor Mode: External; Palpation (Daniela Johan, RN) Frequency (min): 2-6.5 (Daniela Johan, RN) Quality: Mild (Daniela Johan, RN) Duration (sec): 60-120 (Daniela Johan, RN) Duration Criteria: Less than Two 120 Second Contractions (Daniela Johan, RN) Pattern: Normal: <= 5 Contractions in 10 Minutes (Daniela Johan, RN) Resting Tone (Palpate): Relaxed (Daniela Johan, RN) Assessment A Monitor Mode: External US (Daniela Johan, RN) FHR Baseline Rate : 140 (Daniela Johan, RN) Variability: Moderate 6-25 bpm (Daniela Johan, RN) Accelerations: 15X15 (Daniela Johan, RN) Decelerations: None (Daniela Johan, RN) Datetime: 05/22/2016 10:46 NBP Sys/Angie/Mean (mmHg): 102 (QS system process) : 69 (QS system process) : 79 (QS system process) Pulse: 67 (QS system process) LaborFlag: Antepartum (QS system process) Datetime: 05/22/2016 10:35 Vaginal Exam Dilatation (cm): 5.0 (Daniela Prado RN) Effacement (%): 60 (Daniela Prado RN) Station: -1 (Daniela Prado RN) Exam by: Yahaira Prado RN (Daniela Prado RN) Vaginal Bleeding: None (Daniela Prado RN) Cervix, Consistency: Soft (Daniela Prado RN) Cervix, Position: Midposition (Daniela Prado, RN) Datetime: 05/22/2016 10:31 NBP Sys/Angie/Mean (mmHg): 98 (QS system process) : 62 (QS system process) : 75 (QS system process) Pulse: 66 (QS system process) LaborFlag: Antepartum (QS system process) Datetime: 05/22/2016 10:30 Uterine Activity Monitor Mode: External; Palpation (Daniela Prado RN) Frequency (min): 4-6 (Daniela Johan, RN) Quality: Mild (Daniela Prado, RN) Duration (sec): 80-130 (Daniela Prado, RN) Duration Criteria: Less than Two 120 Second Contractions (Daniela Prado, RN) Pattern: Normal: <= 5 Contractions in 10 Minutes (Daniela Prado, RN) Resting Tone (Palpate): Relaxed (Daniela Prado, RN) Assessment A Monitor Mode: External US (Daniela Prado, RN) FHR Baseline Rate : 140 (Daniela Prado, RN) Variability: Moderate 6-25 bpm (Daniela Prado, RN) Accelerations: 15X15 (Daniela Prado, RN) Decelerations: None (Daniela Prado, RN) Datetime: 05/22/2016 10:16 NBP Sys/Angie/Mean (mmHg): 101 (QS system process) : 66 (QS system process) : 78 (QS system process) Pulse: 64 (QS system process) LaborFlag: Antepartum (QS system process) Datetime: 05/22/2016 10:00 Uterine Activity Monitor Mode: External; Palpation (Daniela Johan, RN) Frequency (min): 4-5 (Daniela Johan, RN) Quality: Mild (Daniela Johan, RN) Duration (sec): 90-100 (Danieladeny Prado, RN) Duration Criteria: Less than Two 120 Second Contractions (Daniela Johan, RN) Pattern: Normal: <= 5 Contractions in 10 Minutes (Daniela Johan, RN) Resting Tone (Palpate): Relaxed (Daniela Johan, RN) Assessment A Monitor Mode: External US (Daniela Prado, RN) FHR Baseline Rate : 150 (Daniela Prado, RN) Variability: Moderate 6-25 bpm (Daniela Johan, RN) Accelerations: 15X15 (Daniela Prado, RN) Decelerations: None (Daniela Prado, RN) Datetime: 05/22/2016 09:53 Procedures: Labs Drawn (Laura Rivas, RN) Datetime: 05/22/2016 09:31 NBP Sys/Angie/Mean (mmHg): 107 (QS system process) : 71 (QS system process) : 85 (QS system process) Pulse: 67 (QS system process) LaborFlag: Antepartum (QS system process) Datetime: 05/22/2016 09:30 Uterine Activity Monitor Mode: External; Palpation (Daniela Johan, RN) Frequency (min): 7-8 (Daniela Johan, RN) Quality: Mild (Daniela Johan, RN) Duration (sec): 60-80 (Daniela Johan, RN) Duration Criteria: Less than Two 120 Second Contractions (Daniela Johan, RN) Pattern: Normal: <= 5 Contractions in 10 Minutes (Daniela Johan, RN) Resting Tone (Palpate): Relaxed (Daniela Johan, RN) Assessment A Monitor Mode: External US (Daniela Johan, RN) FHR Baseline Rate : 150 (Daniela Johan, RN) Variability: Moderate 6-25 bpm (Daniela Johan, RN) Accelerations: 15X15 (Daniela Johan, RN) Decelerations: None (Daniela Johan, RN) Datetime: 05/22/2016 09:25 Patient Care Comments: consents signed (Daniela Johan, RN) Datetime: 05/22/2016 09:21 Patient Care IV/Blood Work: IV Started (Daniela Johan, RN) Datetime: 05/22/2016 09:20 Monitor Interventions for UA: [place] Adjusted (Daniela Prado RN) Quality: Mild (Daniela Prado RN) Pattern: Normal: <= 5 Contractions in 10 Minutes (Daniela Prado RN) Resting Tone (Palpate): Relaxed (Daniela Prado RN) Assessment A Monitor Mode: External US (Daniela Prado RN) Pain Pain Scale: 0 (Daniela Prado RN) Pain Presence: None/Denies (Daniela Prado RN) Pain Type: N/A (Daniela Prado RN) Pain Goal: 1 (Daniela Prado RN) Pain Relief Measures: Comfort Measures (Daniela Prado RN) Pain Coping: Talking Through Contractions (Daniela Prado RN) Membrane Status: Intact (Daniela Prado RN) Amniotic Fluid Amount: None (Daniela Prado RN) Amniotic Fluid Odor: Normal (Daniela Prado RN) Vaginal Bleeding: None (Daniela Prado RN) Maternal Assessment Level of Consciousness: Fully Conscious (Daniela Prado RN) DTR's/Clonus: DTRs 2+; No Clonus (Daniela Prado RN) Headache: Denies (Daniela Prado RN) Breath Sounds, Left: Clear and Equal (Daniela Prado RN) Breath Sounds, Right: Clear and Equal (Daniela Prado RN) Nausea/Vomiting: Denies (Daniela Prado RN) RUQ Epigastric Pain: Denies (Daniela Prado RN) Patient Care IV/Blood Work: IV Started; IV Bolus Started; IV Infusing per Order (Daniela Prado RN) Oxygen Method: Room Air (Daniela Prado RN) Patient Position/Activity: Right Tilt; Low Fowlers (Daniela Prado RN) Comfort Measures: Family Support (Daniela Prado RN) I/O Interventions: Clear Liquids Given (Daniela Prado RN) Teaching Instructional Method: Verbal (Daniela Prado RN) Plan of Care: Plan of Care Discussed; Vaginal Delivery (Daniela Prado RN) Unit Routine: [place] to Room; Call [place]; Bed; Visiting Policy (Daniela Prado RN) Related: Common Discomforts of (Daniela Prado RN) LaborFlag: Antepartum (QS system process) Datetime: 05/22/2016 09:16 NBP Sys/Angie/Mean (mmHg): 107 (QS system process) : 74 (QS system process) : 85 (QS system process) Pulse: 69 (QS system process) LaborFlag: Antepartum (QS system process)
[2016-05-22] MEDS: FAMOTIDINE 20 MG TABLET PO SCH (21:21)
[2016-05-23] MEDS: IBUPROFEN 800 MG TABLET PO SCH ×3 (06:01→21:14)
--- NOTE | 2016-05-23 06:01 | L&D Current Admission ---
Current Admit Datetime Report Generated by CPN: 05/23/2016 06:00 ADMISSION INFORMATION Current Admit Date/Time: 05/22/2016 09:18 (05/22/2016 09:18:Daniela Prado RN) Reason for Admission: Induction of Labor (05/22/2016 09:18:Daniela Prado RN) Chief Complaint: patient sent from [facility] by Dr. Best, patient cervix dilated to 5cm per Dr. Best (05/22/2016 09:20:Daniela Prado RN) EGA per Dates: 39.0 (05/22/2016 09:18:QS system process) Method of Arrival: Ambulatory (05/22/2016 09:18:Daniela Prado RN) Records Available: Yes (05/22/2016 09:18:Daniela Prado RN) General Admission Information: Reviewed (05/22/2016 09:18:Daniela Prado RN) BELONGINGS/ADVANCED DIRECTIVES Valuables/Personal Effects: Purse/Wallet; Cell Phone; Jewelry (05/22/2016 09:18:Daniela Prado RN) Disposition of Belongings: Kept with Patient (05/22/2016 09:18:Daniela Prado RN) Advance Direct for Healthcare: No, and Wants No Information (05/22/2016 09:18:Daniela Prado RN) Durable Power of Principal Database Developer: No (05/22/2016 09:18:Daniela Prado RN) Living Will: No (05/22/2016 09:18:Danieal Prado RN) Organ Donor: Yes (05/22/2016 09:18:Daniela Prado RN) Pt Rights Information Given: Yes (05/22/2016 09:18:Daniela Prado RN) Pt Understands Pt Rights: Yes (05/22/2016 09:18:Daniela Prado RN) DOMESTIC VIOLANCE SCREENING Dom Viol Threatened/Hurt: No (05/22/2016 09:18:Daniela Prado RN) Hx of Abuse/Neglect past 2yrs: No (05/22/2016 09:18:Daniela Prado RN) Feel Unsafe Going Home: No (05/22/2016 09:18:Daniela Prado RN) Addt'l Observ Indicating Abuse: No (05/22/2016 09:18:Daniela Prado RN) Reason Unable to Complete Screen: N/A, Screen Completed (05/22/2016 09:18:Daniela Prado RN) Considered Personal Harm/Suicide: No (05/22/2016 09:18:Daniela Prado RN) NUTRITIONAL/FUNCTIONAL SCREENING Problem with Appetite >5 Days: No (05/22/2016 09:18:Daniela Prado RN) Chew/Swallow Difficulties: No (05/22/2016 09:18:Daniela Prado RN) Inappropriate Wt Gain/Loss: No (05/22/2016 09:18:Daniela Prado RN) Presence Skin Breakdown/Ulcer: No (05/22/2016 09:18:Daniela Prado RN) Special Diet: No (05/22/2016 09:18:Daniela Prado RN) Pt Requests Parking Enforcement Technician Visit: No (05/22/2016 09:18:Daniela Prado RN) Hx of Any of the Following?: N/A (05/22/2016 09:18:Daniela Prado RN) New Diagnosis of: N/A (05/22/2016 09:18:Daniela Prado RN) Requires Assist w/Ambulation: No (05/22/2016 09:18:Daniela Prado RN) Uses Assist Device to Ambulate: No (05/22/2016 09:18:Daniela Prado RN) Pt Requires Help w/ADL's: No (05/22/2016 09:18:Daniela Prado RN)
--- NOTE | 2016-05-23 06:01 | L&D General Admission ---
General Admit Datetime Report Generated by CPN: 05/23/2016 06:00 INFORMATION Patient Age: 30 (04/12/2016 13:45:QS system process) EDC: 05/29/2016 00:00 (04/12/2016 13:50:Melissa Garcia RN) : 6 (04/12/2016 13:50:Melissa Garcia RN) Para: 5 (04/12/2016 18:23:Melissa Garcia RN) Term: 4 (04/12/2016 13:50:Melissa Garcia RN) : 1 (04/12/2016 13:50:Melissa Garcia RN) Spontaneous Abortions: 0 (04/12/2016 13:50:Xochitl Vivas RN) Induced Abortions: 0 (04/12/2016 13:50:Xochitl Vivas RN) Livin (04/12/2016 13:50:Xochitl Vivas RN) Cesareans: 0 (04/12/2016 13:50:Xohcitl Vivas RN) VBACs: 0 (04/12/2016 13:50:Xochitl Vivas RN) Ectopic: 0 (04/12/2016 13:50:Xochitl Vivas RN) Multiple Births: 0 (04/12/2016 13:50:Xochitl Vivas RN) Baby, Number in Womb: 1 (04/12/2016 18:23:Melissa Garcia RN) CARE Primary Appraisal Manager: [facility] (04/12/2016 13:50:Melissa Garcia RN) Appraisal Manager Other: [facility] (04/12/2016 13:50:Melissa Garcia RN) Adequate Care: Yes (04/12/2016 13:50:Melissa Garcia RN) Height (in): 64 (05/22/2016 16:22:QS system process) ALLERGIES Medication Allergy: No (04/12/2016 13:50:Melissa Garcia RN) Medication Allergies: No Known Allergies (05/22/2016) (05/22/2016 09:08:QS system process) Latex Allergy: No Latex Allergies (04/12/2016 13:50:Melissa Garcia RN) COMMUNICATION Primary Language: Burkinan (04/12/2016 13:50:Melissa Garcia RN) Medical Tx Preferred Language: Burkinan (04/12/2016 13:50:Xochitl Vivas RN) Communication Barrier(s): None (04/12/2016 13:50:Xochitl Vivas RN) DEMOGRAPHICS Address: [place] [address] (04/12/2016 13:45:QS system process) Zipcode: [phone] (04/12/2016 13:45:QS system process) Home (05/22/2016 08:51:QS system process) SSN: [id number] (04/12/2016 13:45:QS system process) Next of Kin Name: CHUCKIE LORENZO (04/12/2016 13:45:QS system process) Next of Kin (04/12/2016 13:45:QS system process) Next of Kin Relationship: SPO (04/12/2016 13:45:QS system process) Date of : 1985 (04/12/2016 13:45:QS system process) Marital Status: (04/12/2016 13:45:QS system process) Sex: Female (04/12/2016 13:45:QS system process) Race: (04/12/2016 13:45:QS system process) Ethnicity: Non- or (04/12/2016 13:45:QS system process) Episcopal: None (04/12/2016 13:45:QS system process) DRUG AND ALCOHOL USE Alcohol: No (04/12/2016 13:50:Melissa Garcia RN) Cigarettes: Current Everyday Smoker. [id number] (04/12/2016 13:50:Melissa Garcia RN) Average Cigarettes Smoked: < 5 per day (04/12/2016 13:50:Melissa Garcia RN) Advised to Stop Smoking: Yes (04/12/2016 13:50:Melissa Garcia RN) Marijuana: No (04/12/2016 13:50:Melissa Garcia RN) Cocaine: No (04/12/2016 13:50:Melissa Garcia RN) Other Illicit Drugs: No (04/12/2016 13:50:Melissa Garcia RN) VACCINE HISTORY Influenza Vaccine: Yes (04/12/2016 13:50:Melissa Garcia RN) Influenza Date: January 2016 (04/12/2016 13:50:Melissa Garcia RN) Tdap Vaccine: Yes (04/12/2016 13:50:Melissa Garcia RN) Floodplain Manager: [facility] (04/12/2016 13:50:Melissa Garcia RN) Feeding Preference: Breast (04/12/2016 13:50:Melissa Garcia RN) Benefit of Breast Feed Discussed: Yes (04/12/2016 13:50:Melissa Garcia RN) Circumcision: Yes (04/12/2016 13:50:Melissa Garcia RN) Classes Attended: No (04/12/2016 13:50:Melissa Garcia RN) Tubal Ligation: No (04/12/2016 13:50:Melissa Garcia RN) Tubal Authorization Signed: Yes (04/12/2016 13:50:Melissa Garcia RN) Consent: N/A (04/12/2016 13:50:Melissa Garcia RN) Consent Signed: N/A (04/12/2016 13:50:Melissa Garcia RN) Pain Management Plans: Epidural (04/12/2016 13:50:Melissa Garcia RN) Support Person: Chuckie Lorenzo (04/12/2016 13:50:Melissa Garcia RN) Support Person Relationship: (04/12/2016 13:50:Melissa Garcia RN) Cultural/Spritual Practice: No (04/12/2016 13:50:Melissa Garcia RN) Spir/Cult Dietary Needs: No (04/12/2016 13:50:Melissa Garcia RN) LIVING SITUATION/DISCHARGE PLAN Living Arrangements: House (04/12/2016 13:50:Melissa Garcia RN) Adequate Access to:: Electric; Heat; Refrigeration; Plumbing/Running water; Phone; Transportation (04/12/2016 13:50:Melissa Garcia RN) WIC Program: Yes (04/12/2016 13:50:Melissa Garcia RN) Discharge Tariff Clerk Person: Chuckie Lorenzo (04/12/2016 13:50:Melissa Garcia RN) Person to Help after Discharge: Chuckie Lorenzo (04/12/2016 13:50:Melissa Garcia RN) Currently Using Commun Resources: Yes (04/12/2016 13:50:Melissa Garcia RN) Specify Current Resource Used: Medicaid (04/12/2016 13:50:Melissa Garcia RN) Car Seat for Discharge: Yes (04/12/2016 13:50:Melissa Garcia RN) Adoption Requested: No (04/12/2016 13:50:Melissa Garcia RN) Pt Contact w/ Post : N/A (04/12/2016 13:50:Melissa Garcia RN) LABS Blood Type: A Positive (04/12/2016 13:50:Melissa Garcia RN) Antibody Screen: negative (04/12/2016 13:50:Daniela Prado RN) Hemoglobin: 11.5 L (05/22/2016 09:51:QS system process) Hematocrit: 33.1 L (05/22/2016 09:51:QS system process) MCV: 83 (05/22/2016 09:51:QS system process) Group Beta Strep: negative (04/12/2016 13:50:Xochitl Vivas RN) Gonorrhea: Negative (04/12/2016 13:50:Daniela Prado RN) Chlamydia: Negative (04/12/2016 13:50:Daniela Prado RN) RPR/VDRL: Nonreactive (04/12/2016 13:50:Melissa Garcia RN) HIV Exposure Test: Negative (04/12/2016 13:50:Melissa Garcia RN) Rubella: Immune (04/12/2016 13:50:Daniela Prado RN) Varicella: Non Susceptible (04/12/2016 13:50:Melissa Garcia RN) OB/PREVIOUS HISTORY Previous Procedures: Ultrasound; NST; Amniocentesis/Genetic (04/12/2016 13:50:Melissa Garcia RN) Current Procedures: Ultrasound; NST (04/12/2016 13:50:Melissa Garcia RN) History of Previous : No (04/12/2016 13:50:Melissa Garcia RN) History of Gestational Diabetes: No (04/12/2016 13:50:Melissa Garcia RN) History of PIH: No (04/12/2016 13:50:Melissa Garcia RN) History of Incompetent Cervix: No (04/12/2016 13:50:Melissa Garcia RN) History of Placenta Previa/Abrup: Yes (04/12/2016 13:50:Melissa Garcia RN) History of Macrosomia: No (04/12/2016 13:50:Melissa Garcia RN) History of IUGR: No (04/12/2016 13:50:Melissa Garcia RN) History of Hemorrhage: No (04/12/2016 13:50:Melissa Garcia RN) History of Loss/Stillborn: No (04/12/2016 13:50:Melissa Garcia RN) History of : No (04/12/2016 13:50:Melissa Garcia RN) History of D (Rh) Sensitization: No (04/12/2016 13:50:Melissa Garcia RN) History Recurrent Loss/Stillborn: No (04/12/2016 13:50:Melissa Garcia RN) History Depression/PP Depression: Yes (04/12/2016 13:50:Melissa Garcia RN) History of Uterine Anomaly/YONI: No (04/12/2016 13:50:Melissa Garcia RN) History of Infertility: No (04/12/2016 13:50:Melissa Garcia RN) History of ART Treatment: No (04/12/2016 13:50:Melissa Garcia RN) History of YONI: No (04/12/2016 13:50:Melissa Garcia RN) Comments Obstetrical History: G1: 03/2002 40weeks, 6#3oz - patient states she had a partial placenta abruption, it started tearing away but never did completely G2: 06/2005 37 weeks, 6#4oz G3: 04/2008 40 weeks, 6#13oz G4: 08/2012 38 weeks, 5#11oz G5: 10/17/2014 37.6 weeks, 6#1oz G6: current. late PNC, didn't discover she was until 5 months along (04/12/2016 13:50:Melissa Garcia RN) MEDICAL HISTORY Med Hx Diabetes: No (04/12/2016 13:50:Melissa Garcia RN) Med Hx Hypertension: No (04/12/2016 13:50:Melissa Garcia RN) Med Hx Heart Disease: No (04/12/2016 13:50:Melissa Garcia RN) Med Hx Autoimmune Disorder: No (04/12/2016 13:50:Melissa Garcia RN) Med Hx Kidney Disease/UTI: No (04/12/2016 13:50:Melissa Garcia RN) Med Hx Neurologic/Epilepsy: No (04/12/2016 13:50:Melissa Garcia RN) Med Hx Psychiatric Disorders: Yes (04/12/2016 13:50:Melissa Garcia RN) Med Hx Hepatitis/Liver Disease: No (04/12/2016 13:50:Melissa Garcia RN) Med Hx Varicosities/Phlebitis: No (04/12/2016 13:50:Melissa Garcia RN) Med Hx Thyroid Dysfunction: No (04/12/2016 13:50:Melissa Garcia RN) Med Hx Trauma/Violence: No (04/12/2016 13:50:Melissa Garcia RN) Med Hx Blood Transfusion: No (04/12/2016 13:50:Melissa Garcia RN) Med Hx Pulmonary (Asthma,TB): No (04/12/2016 13:50:Melissa Garcia RN) Med Hx Breast: No (04/12/2016 13:50:Melissa Garcia RN) Med Hx DIRECTOR OF MECHANICAL ENGINEERING Surgery: No (04/12/2016 13:50:Melissa Garcia RN) Med Hx Hospitalization/Surgery: Yes (04/12/2016 13:50:Melissa Garcia RN) Med Hx Anesthetic Complications: No (04/12/2016 13:50:Melissa Garcia RN) Med Hx Abnormal Pap Smear: Yes (04/12/2016 13:50:Melissa Garcia RN) Other Medical Diseases: Yes (04/12/2016 13:50:Melissa Garcia RN) Med Hx Significant Family Hx: No (04/12/2016 13:50:Melissa Garcia RN) Details of Med/Surg Hx: Sickle cell crisis at age 18, depression and bipolar - no meds. abnormal pap 2016 (04/12/2016 13:50:Melissa Garcia RN) INFECTIOUS HISTORY Inf Hx Gonorrhea: No (04/12/2016 13:50:Melissa Garcia RN) Inf Hx Chlamydia: No (04/12/2016 13:50:Melissa Garcia RN) Inf Hx Syphilis: No (04/12/2016 13:50:Melissa Garcia RN) Inf Hx HIV/AIDS: No (04/12/2016 13:50:Melissa Garcia RN) Inf Hx Human Papilloma Virus: No (04/12/2016 13:50:Melissa Garcia RN) Inf Hx Pt/Partner Genital Herpes: No (04/12/2016 13:50:Melissa Garcia RN) Inf Hx Tuberculosis/Exposure: No (04/12/2016 13:50:Melissa Garcia RN) Inf Hx Hepatitis B,C: No (04/12/2016 13:50:Melissa Garcia RN) Inf Hx Rash or Viral Illness: No (04/12/2016 13:50:Melissa Garcia RN) GENETIC HISTORY Gen Hx Age >=35 at NANCY: No (04/12/2016 13:50:Melissa Garcia RN) Gen Hx Thalassemia: No (04/12/2016 13:50:Melissa Garcia RN) Gen Hx Congenital Heart Defect: No (04/12/2016 13:50:Melissa Garcia RN) Gen Hx Neural Tube Defect: No (04/12/2016 13:50:Melissa Garcia RN) Gen Hx Down's Syndrome: No (04/12/2016 13:50:Melissa Garcia RN) Gen Hx Tommie-Sachs: No (04/12/2016 13:50:Melissa Garcia RN) Gen Hx Barry: No (04/12/2016 13:50:Melissa Garcia RN) Gen Hx Familial Dysautonomia: No (04/12/2016 13:50:Melissa Garcia RN) Gen Hx Sickle Cell Disease/Trait: Yes (04/12/2016 13:50:Melissa Garcia RN) Gen Hx Hemophilia/Blood Disorder: No (04/12/2016 13:50:Melissa Garcia RN) Gen Hx Muscular Dystrophy: No (04/12/2016 13:50:Melissa Garcia RN) Gen Hx Cystic Fibrosis: No (04/12/2016 13:50:Melissa Garcia RN) Gen Hx Huntingtons Chorea: No (04/12/2016 13:50:Melissa Garcia RN) Gen Hx Mental Retardation/Autism: No (04/12/2016 13:50:Melissa Garcia RN) Gen Hx Tested for Fragile X: No (04/12/2016 13:50:Melissa Garcia RN) Gen Hx Other Inher/Chromosomal: No (04/12/2016 13:50:Melissa Garcia RN) Gen Hx Maternal Metabolic DO: No (04/12/2016 13:50:Melissa Garcia RN) Gen Hx Pt Father or FOB Defect: No (04/12/2016 13:50:Melissa Garcia RN) Gen Hx Other Genetic History: No (04/12/2016 13:50:Melissa Garcia RN) Gen Hx Drugs/Meds since LMP: No (04/12/2016 13:50:Melissa Garcia RN)
--- NOTE | 2016-05-23 06:16 | L&D Care Plan ---
LD CARE PLANS Datetime Report Generated by CPN: 05/23/2016 06:15 Datetime: 05/22/2016 08:36 Pain State: Risk For (Kristi Camp, RNC) Related To: Labor and Delivery Process; Treatment and Procedures; Post (Kristi Camp, RNC) Goal(s): Patients Pain will be Assessed and Managed; Patient will Verbalize Adequate Relief of Pain or the Ability to [place] with Current Pain (Kristi Camp, RNC) Interventions: Assess Pain Severity on Scale of 0 (None) to 5 (Severe); Assess Type, Location and Intensity of Pain Each Time Client Reports Discomfort and Notify Provider if Unusal Pain Develops; Encourage Proper Breathing and Relaxation Techniques; Offer Alternatives Such as Repositioning, Calm Environment, Massages, Diversional Activities, Ice Pack, Splinting, and Ambulation; Administer Analgesics as Ordered; Assist with Epidural Placement as Appropriate; Evaluate Therapeutic Effectiveness of Medication and Treatments (Kristi Birmingham, KOBE) Outcome: Patient will Report Absence or Relief of Pain Consistent with Established Pain Goal (KOBE Matta) Status: Ongoing (KOBE Matta) Outcome: Patient will have a Decrease in Signs and Symptoms of Discomfort (Kristi Birmingham, KOBE) Status: Ongoing (KOBE Matta) Outcome: Pain will be Controlled During Procedures (KOBE Matta) Status: Ongoing (KOBE Matta) Anxiety State: Risk For (KOBE Matta) Related To: Labor and Delivery Process; Situational Crisis; Medical Interventions; Significant Life Event (KOBE Matta) Goal(s): Patient will have Decreased Anxiety and be able to Function at Acceptable Levels (KOBE Matta) Interventions: Assess Verbal and Nonverbal Behavioral Indicators of Anxiety; Assist Patient to Identify and Verbalize Symptoms of Anxiety; Identify and Demonstrate Techniques to Control Anxiety; Assist Patient with Coping Mechanisms to Manage Anxiety; Provide Theraputic Touch for the Patient; Explain to Patient, Using a Calm Reassuring Approach and Nonmedical Terms, All Activities, Procedures, and Concerns; Instruct Patient and Family about Post Discharge Care, Limitations, Symptoms to Report and Resources Available (KOBE Matta) Outcome: Patient will Identify, Verbalize and Demonstrate Techniques to Control Anxiety (Kristi Camp, RNC) Status: Ongoing (Kristi Birmingham [facility]) Outcome: Patient's Posture, Facial Expressions, Gestures and Activity Level will Reflect Decreased Anxiety (Kristi Birmingham, RNC) Status: Ongoing (Kristi Birmingham, RN) Outcome: Patient will Verbalize a Sense of Control and/or Acceptance of the Situation (Kristi Birmingham, RNC) Status: Ongoing (Kristi Birmingham, RN) Outcome: Patient will Identify and Utilize Support Person (Kristi Birmingham RN) Status: Ongoing (Kristi Birmingham, [facility]) Knowledge Deficit State: Risk For (Kristi Birmingham, JITENDRAC) Related To: Labor and Delivery Process; Treatment and Procedures; Feeding and Infant Care; Community Resources and Available Support Mechanisms (Kristi Birmingham, KOBE) Goal(s): Patient will Accurately Verbalize Understanding of Plan of Care and Treatment; Patient and Family will Accurately Verbalize Understanding of the Disease Process (Kristi Birmingham, KOBE) Interventions: Assess Motivation and Willingness of Patient/Family to Learn; Assess Preferred Learning Mode: One to One Instruction, Reading, Videos, Group Discussion or Demonstration; Assess Barriers to Learning: Pain, Emotional State, Language Barrier, Cognitive Impairment, Visual or Hearing Deficits; Assess Patient and Family Knowledge of Disease Process, Medications and Treatment; Discuss Therapy and/or Treatment Options, Describe Rationale Behind Management, Therapy and Treatment Recommendations; Instruct Patient and Family on Signs and Symptoms to Report; Instruct Patient and Family on Medication Effects and Side Effects; Provide Appropriate and Timely Education Using Multiple Techniques; Provide Patient and Family with Support Group Information and Resources; Give Clear and Thorough Explanations and Demonstrations (Kristi Birmingham, KOBE) Outcome: Patient and Family will Verbalize Understanding of Condition, Treatment and Signs and Symptoms to Report (Kristi Birmingham RNC) Status: Ongoing (Kristi Birmingham, RNC) Outcome: Patient will Identify Perceived Learning Needs and Express Motivation to Learn (Kristi Birmingham, RNC) Status: Ongoing (Kristi Birmingham, RNC) Outcome: Patient will Verbalize Understanding of Desired Content, and/or Performs Desired Skill Prior to Discharge (Kristi Birmingham, RNC) Status: Ongoing (Kristi Birmingham, RNC) Fluid Volume State: Risk For (KOBE Matta) Related To: Hemorrhage; Anesthesia (Kristi Birmingham, RNC) Goal(s): Patient will Achieve and Maintain a Balanced Fluid Volume Status; Hemodynamically Stable (Kristi Birmingham, RNC) Interventions: Monitor Vital Signs; Auscultate Breath Sounds; Monitor Patient for Skin Turgor, Mucous Membranes, Dry Skin, Weakness, Headaches and Confusion; Provide Oral Fluids as Ordered; Initiate and Maintain Intravenous Fluids as Ordered; Monitor Intake and Output as Indicated Per Patient Status; Accurately Measure Blood Loss; Monitor Lab and Test Results as Obtained and Notify Provider of Abnormal Findings; Monitor Patient's Weight (Kristi Birmingham, RNC) Outcome: Patient will have Clear Lung Sounds (Kristi Birmingham, RNC) Status: Ongoing (Kristi Birmingham, RNC) Outcome: Patient will have Vital Signs within Expected Range (Kristi Birmingham, RNC) Status: Ongoing (Kristi Birmingham, RNC) Outcome: Urine Output will be within Expected Range (Kristi Birmingham, RNC) Status: Ongoing (Kristi Birmingham, RNC) Outcome: Patient will have Minimal Generalized or Upper Extremity Edema (Kristi Birmingham, RNC) Injury State: Risk For (Kristi Camp, RNC) Related To: Labor and Delivery Process; Anesthesia (Kristi Camp, RNC) Goal(s): Patient will Remain Free from Injury (Kristi Camp, RNC) Interventions: Monitoring as per Hospital Protocol; Assess Neurological Status; Perform Risk Assessment of Patients with Induction and ; Perform Fall Risk Assessment and Prevention per Hospital Protocol; Perform DVT Risk Assessment and Prophylaxis per Hospital Protocol; Ensure that Oxygen, Suction, and Resuscitation Medications and Equipment are Readily Available; Confirm Patient ID Prior to Procedure(s) and Medication Administration per Hospital Policy (Kristi Camp, RNC) Outcome: Successful Fall Risk Prevention (Kristi Camp, RNC) Status: Ongoing (Kristi Camp, RNC) Outcome: Patient will Deliver Infant without Adverse [place]ela (Kristi Camp, RNC) Status: Ongoing (Kristi Camp, RNC) Outcome: Patient's Neurological Status will Remain Stable (Kristi Camp, RNC) Status: Ongoing (Kristi Camp, RNC) Impaired Skin Integrity State: Risk For (Kristi Camp, RNC) Related To: Vaginal Delivery; Invasive Procedures (Kristi Camp, RNC) Goal(s): Patient will Maintain Optimal Skin Integrity, Free of Breakdown, Injury or Infection (Kristi Camp, RNC) Interventions: Complete Screening for Pressure Ulcer Risk and Initiate Protocol per Hospital Policy; Monitor Site of Skin Impairment for Color Changes, Redness, Swelling, Warmth, Pain or Other Signs of Infection; Encourage and Assist with Position Changes; Monitor Patient's Mobility Status; Provide Adequate Nutrition and Fluids; Teach Patient Appropriate Hygienic Care; Teach Patient/Family Skin Care Management (Kristi Birmingham, JITENDRAC) Outcome: Patient will not have Evidence of Injury Such as Skin Breakdown, Scrapes, Cuts, or Bruising (Kristi Birmingham, RNC) Status: Ongoing (Kristi Birmingham, RNC) Outcome: Patient will Report Any Altered Sensation or Pain at Site of Skin Impairment (Kristi Birmingham, RNC) Status: Ongoing (Kristi Birmingham, RNC) Outcome: Patients Incisions and Wounds will be without Signs or Symptoms of Infection (Kristi Birmingham, RNC) Status: Ongoing (Kristi Birmingham, RNC) Outcome: Patient will Demonstrate Understanding of Plan to Heal Skin and Prevent Reinjury and Verbalize Risk Factors (Kristi Birmingham, JITENDRAC) Status: Ongoing (Kristi Birmingham, JITENDRAC) Nutrition State: Actual (KOBE Matta) Related To: ; (KOBE Matta) Goal(s): Patient will have an Intake of Nutrients Sufficient to Meet Metabolic Needs (KOBE Matta) Interventions: Nutritional Screening and Assessment per Hospital Policy; Consult Sourcing Manager for Further Assessment and Recommendations Regarding Food Preferences and Nutritional Support; Allow Patient to Plan and Order Diet when Possible; Monitor Laboratory Values That Indicate Nutritional Well-being; Consult Umbrella Mender for Nutritional Support Regarding Requirements; Document Actual Weight Initially and Weekly (Do Not Estimate); Encourage Patient Participation in Maintaining a Food Log as Indicated; Educate Patient on the Importance of Maintaining an Adequate Caloric Intake (KOBE Matta) Outcome: Patient will Receive Adequate Calories and Fluid Volume to Meet Metabolic Needs (KOBE Matta) Status: Ongoing (KOBE Matta) Outcome: Patient will Select Foods or Meals that Support Adequate Nutrition (KOBE Matta) Status: Ongoing (KOBE Matta)
[2016-05-23 07:42] LABS: HEMATOCRIT 32.9 % (36.0-47.0); HEMOGLOBIN 11.1 g/dL (12.0-15.5); HGB HCT DIFFERENCE 0.4; MEAN CORPUSCULAR HEMOGLOBIN 28.2 pg (27.0-33.4); MEAN CORPUSCULAR HGB CONC 33.9 g/dL (32.0-36.0); MEAN CORPUSCULAR VOLUME 83 fl (80-97); RED BLOOD COUNT 3.95 10^6/uL (3.72-5.28); RED CELL DISTRIBUTION WIDTH 15.3 % (11.5-14.0); WHITE BLOOD COUNT 10.5 10^3/uL (4.0-10.5)
[2016-05-23] MEDS ORDERED: SENNOSIDES/DOCUSATE 8.6-50 MG 1 EACH TABLET PO SCH (10:00)
[2016-05-23] MEDS ORDERED: PRENATAL VITAMIN W-O CA NO5/FE FUMARATE/FA CAPSULE PO SCH (10:00)
[2016-05-23] MEDS: ACETAMINOPHEN WITH CODEINE #3 TABLET PO PRN ×3 (11:45→17:18)
--- NOTE | 2016-05-23 11:45 | PDOC PROGRESS REPORT ---
Subjective-OB Subjective: Post Delivery Day: 30 year old. Denies any needs at this time. Pt doing well, no concerns. She reports light bleeding, regular diet and voiding without difficulty. Physical Exam (OB) Vital Signs: Temp Pulse Resp BP Pulse Ox 97.3 F 50 L 17 102/71 100 05/23/16 08:40 05/23/16 08:11 05/23/16 08:11 05/23/16 08:11 05/23/16 08:11 Intake & Output 05/22/16 05/23/16 05/24/16 06:59 06:59 06:59 Weight 75.4 kg - Lochia Lochia Amount: Scant < 10 ml Lochia Color: Rubra/Red - Abdomen Description: Tender Hernia Present: Yes Fundal Description: Firm Fundal Height: u/u - u/2 Objective-Diagnostic Laboratory: 05/23/16 07:29 05/23/16 07:29 WBC 10.5 RBC 3.95 Hgb 11.1 L Hct 32.9 L MCV 83 MCH 28.2 MCHC 33.9 RDW 15.3 H Plt Count 157 Assessment and Plan(PN) - Assessment and Plan (1) Anemia Qualifiers: Anemia type: other cause Is this a current diagnosis for this admission?: Yes (2) Delivery normal Is this a current diagnosis for this admission?: Yes - Time Spent with Patient Time with patient: Less than 15 minutes Medications reviewed and adjusted accordingly: Yes - Disposition Anticipated Discharge: Home Within: within 24 hours
[2016-05-23] MEDS: FERROUS SULFATE 325 MG TABLET PO SCH (17:18)
[2016-05-23] MEDS: DOCUSATE SODIUM 100 MG CAPSULE PO SCH (17:18)
[2016-05-23] MEDS: FAMOTIDINE 20 MG TABLET PO SCH (21:14)
[2016-05-24] MEDS: ACETAMINOPHEN WITH CODEINE #3 TABLET PO PRN ×2 (03:38→12:12)
[2016-05-24] MEDS: IBUPROFEN 800 MG TABLET PO SCH ×2 (06:03→13:26)
[2016-05-24 07:59] VITALS: BP 97/75
[2016-05-24] MEDS: FERROUS SULFATE 325 MG TABLET PO SCH (09:31)
[2016-05-24] MEDS: DOCUSATE SODIUM 100 MG CAPSULE PO SCH (09:32)
[2016-05-24] MEDS: FAMOTIDINE 20 MG TABLET PO SCH (09:32)
--- NOTE | 2016-05-24 09:32 | PDOC PROGRESS REPORT ---
Subjective-OB Subjective: Post Delivery Day: 30 year old. Denies any needs at this time. Ready to go home. Physical Exam (OB) Vital Signs: Temp Pulse Resp BP Pulse Ox 97.4 F 53 L 18 97/75 L 99 05/24/16 08:01 05/24/16 08:01 05/24/16 08:01 05/24/16 07:34 05/24/16 08:01 Intake & Output 05/23/16 05/24/16 05/25/16 06:59 06:59 06:59 Weight 75.4 kg - Lochia Lochia Amount: Scant < 10 ml Lochia Color: Rubra/Red - Abdomen Description: Tender, Soft Hernia Present: No Bowel Sounds: Normoactive Flatus Presence: Present Stool: No Fundal Description: Firm, Midline Fundal Height: u/u - u/2 Objective-Diagnostic Laboratory: 05/23/16 07:29 Assessment and Plan(PN) - Time Spent with Patient Medications reviewed and adjusted accordingly: Yes - Disposition Anticipated Discharge: Home
--- NOTE | 2016-05-24 09:43 | PDOC DISCHARGE SUMMARY ---
Final Diagnosis Discharge Date: 05/24/16 - Final Diagnosis (1) Close interval Is this a current diagnosis for this admission?: Yes (2) Hemoglobin S trait Is this a current diagnosis for this admission?: Yes (3) History depression/anxiety Is this a current diagnosis for this admission?: Yes (4) Anemia Is this a current diagnosis for this admission?: Yes (5) Delivery normal Is this a current diagnosis for this admission?: Yes (6) Migraines Is this a current diagnosis for this admission?: Yes Discharge Data - Discharge Medication Home Medications: Ibuprofen [Motrin 800 mg Tablet] 800 mg PO Q8 #30 tablet 05/24/16 Gestational Age: 39.0 wks Reason(s) for Admission: Onset of Labor Procedures: Ultrasound Intrapartum Procedure(s): Spontaneous Vaginal Delivery - [place] Data Baby 1 Male at 1 minute: 8 at 5 minutes: 9 Weight: 3.033 kg Home with Mother: Yes Complications: No - Diagnosis Test Laboratory: Temp Pulse Resp BP Pulse Ox 97.4 F 53 L 18 97/75 L 99 05/24/16 08:01 05/24/16 08:01 05/24/16 08:01 05/24/16 07:34 05/24/16 08:01 05/22/16 05/22/16 05/23/16 09:09 09:51 07:29 RBC 3.97 3.95 Hgb 11.5 L 11.1 L Hct 33.1 L 32.9 L Urine Opiates Screen NEGATIVE - Discharge information/Instructions Discharge Activity: Activity As Tolerated, Balance Activity w/Rest, No Lifting Over 10 Pounds, Pelvic Rest, Slowly Increase Activity, No tub bath Discharge Diet: Regular Disposition: HOME, SELF-CARE Follow [facility]: [facility] in: 4, Weeks
--- NOTE | 2016-05-28 11:37 | Delivery Summary ---
Del Sum A-C Datetime Report Generated by CPN: 05/28/2016 11:37 ADMISSION DATA Chief Complaint: Uterine Contractions; Other Chief Complaint Comments: Advanced dilation Admission Impression: Term, Intrauterine ; No Active Labor; Ruptured Membranes Admit Provider Comments: Admitted to L_D for advanced dilatation and irregular uc's and grandmultip seen at [facility] yesterday and was 4 cm, saw Dr. Best today and was 5, sent over for delivery 39 weeks, Cat 1 stri[. Dr. Barger aware of admission DELIVERY PERSONNEL Delivery Doctor:: Valentine Lambert CNM Nurse Knitting Machine Operator Automatic Certified:: Valentine Lambert CNM Labor and Delivery Nurse:: Daniela Prado RNankle patch molder Nurse:: KOBE Matta Template Clerk/HEDDLER TIER: [facility] Additional Personnel: : Laura Rivas RN MATERNAL INFORMATION Delivery Anesthesia: Epidural Medications After Delivery: Pitocin Bolus-Please Comment; Pitocin Drip 20 Units/1000ml NSS Estimated Blood Loss (ml): 200 Maternal Complications: None Provider Comments: After epidural, complete and urge to push viable male from OA to [place] over intact perineum, superficial right labia, tight nuchal cord, unable to reduce before delivery, place on mothers abd, nuchal cord reduced, cord clamped and cut after 2 minutes, cord cut by hsb. FFFM, EBL = 200cc, Cytotec 1000mcg via rectum, FFFM, family at baby and mom remain in recovery in stable condition LABOR SUMMARY EDC: 05/29/2016 00:00 No. Babies in Womb: 1 Attempted: No Labor Anesthesia: Epidural LABOR INFORMATION Reason for Induction: Not Applicable Onset of Labor: 05/22/2016 11:06 Complete Dilatation: 05/22/2016 12:49 Cervical Ripening Agents: Cytotec @ 1000 Oxytocin: N/A Group B Beta Strep: negative Antibiotics # of Doses: 0 Name of Antibiotic Given: n/a Steroids Given: None Reason Steroids Not Administered: Not Applicable MEMBRANES Membranes Rupture Method: Artificial Rupture of Membranes: 05/22/2016 11:06 Length of Rupture (hr): 1.90 Amniotic Fluid Color: Clear Amniotic Fluid Amount: Small Amniotic Fluid Odor: Normal STAGES OF LABOR Stage 1 hr: 1 Stage 1 min: 43 Stage 2 hr: 0 Stage 2 min: 11 Stage 3 hr: 0 Stage 3 min: 4 Total Time in Labor hr: 1 Total Time in Labor min: 58 VAGINAL DELIVERY Episiotomy: None Laceration Extension: N/A Laceration Type: None Laceration Repair: Not Applicable Sponge Count Correct: N/A; Vaginal Sweep Performed Sharps Count Correct: N/A CSECTION DELIVERY Primary Indication: N/A Secondary Indication: N/A CSection Incidence: N/A Labor: N/A Elective: N/A CSection Incision: N/A BABY A INFORMATION Delivery Date/Time: 05/22/2016 13:00 Method of Delivery: Vaginal Born in Route : No : N/A Forceps: N/A Vacuum Extraction: N/A Shoulder Dystocia : No PRESENTATION/POSITION BABY A Presentation: Cephalic Cephalic Presentation: Vertex Vertex Position: Right Occipital Anterior Breech Presentation: N/A PLACENTA INFORMATION BABY A Placenta Delivery Time : 05/22/2016 13:04 Placenta Method of Delivery: Spontaneous Placenta Status: Delivered SCORES BABY A Heart Rate 1 min: >100 bpm Resp Effort 1 min: Good Cry Reflex Irritability 1 min: Cough or Sneeze or Pulls Away Muscle Tone 1 min: Active Motion Color 1 min: Blue/Pale Resuscitation Effort 1 min: Tactile Stimulation SCORE 1 MIN: 8 Heart Rate 5 min: >100 bpm Resp Effort 5 min: Good Cry Reflex Irritability 5 min: Cough or Sneeze or Pulls Away Muscle Tone 5 min: Active Motion Color 5 min: Body [place], Extremities Blue Resuscitation Effort 5 min: N/A SCORE 5 MIN: 9 Resuscitation Effort 10 min: N/A INFORMATION BABY A Gestational Age at Delivery: 39.0 Gestational Status: Full Term- 39- 40.6 Weeks Outcome : Liveborn Condition : Stable Infant Sex: Male IDENTIFICATION BABY A Infant Verification Date/Time: 05/22/2016 13:13 ID Band Number: [id number] Mother's Name Verified: Yes RN Verifying Infant: BL ROULUND, RN Additional Verifying Personnel: Jackeline RODRIGEUZ, RN WEIGHT/LENGTH BABY A Infant Birthweight (gm): 3045 Infant Weight (lb): 6 Infant Weight (oz): 11 Infant Length (in): 20.50 Length (cm): 52.07 CORD INFORMATION BABY A No. Cord Vessels: 3 Nuchal Cord : Around Neck x1, Loose Cord Blood Taken: Yes-For Storage (Mom's Blood type +) Infant Suction: Mouth; Nose ASSESSMENT BABY A Complications: None Physical Findings at Delivery: Within Normal Limits Respirations: Appears Normal Skin to Skin: Yes Skin to Skin Time (min): 60 Mail Teller/ALS Called : No Care By: Araceli Rivas RN Transferred To: Remains with Mother BABY B INFORMATION : N/A
== END 2016-05-24 13:58 | disposition home or self-care (01) | DRG 775 ==
LOC: LR 08:50 → 2S 16:22
PROVIDERS: ADMIT Obstetrics & Gynecology; ATTEND Obstetrics & Gynecology
PROC: 10E0XZZ Delivery of Products of Conception, External Approach (ICD-10-PCS; principal; 2016-05-22)
PROC: 10907ZC Drainage of Amniotic Fluid, Therapeutic from Products of Conception, Via Natural or Artificial Opening (ICD-10-PCS; 2016-05-22)
PROC: 4A1HXCZ Monitoring of Products of Conception, Cardiac Rate, External Approach (ICD-10-PCS; 2016-05-22)
DX: O99.02 Anemia complicating childbirth (principal); O99.354 Diseases of the nervous system complicating childbirth; D57.3 Sickle-cell trait; G43.909 Migraine, unspecified, not intractable, without status migrainosus; O99.344 Other mental disorders complicating childbirth; F41.8 Other specified anxiety disorders; F31.9 Bipolar disorder, unspecified; O99.334 Smoking (tobacco) complicating childbirth; F17.210 Nicotine dependence, cigarettes, uncomplicated; O69.1XX0 Labor and delivery complicated by cord around neck, with compression, not applicable or unspecified; Z3A.39 39 weeks gestation of pregnancy; Z37.0 Single live birth
CPT/HCPCS: 36415; 80307; 81005; 85025; 85027; 86592; 86850; 86900; 86901; 88307; J2590; J3490; S0119

== ENCOUNTER 2016-07-22 08:34 | Day surgery (SDC) | payer MEDICAID ==
[2016-07-16 10:58] LABS: HEMATOCRIT 41.2 % (36.0-47.0); HEMOGLOBIN 13.8 g/dL (12.0-15.5); HGB HCT DIFFERENCE 0.2; MEAN CORPUSCULAR HEMOGLOBIN 27.9 pg (27.0-33.4); MEAN CORPUSCULAR HGB CONC 33.5 g/dL (32.0-36.0); MEAN CORPUSCULAR VOLUME 83 fl (80-97); RED BLOOD COUNT 4.94 10^6/uL (3.72-5.28); RED CELL DISTRIBUTION WIDTH 14.8 % (11.5-14.0); WHITE BLOOD COUNT 10.1 10^3/uL (4.0-10.5)
[2016-07-16 11:22] LABS: APPEARANCE,URINE CLEAR; BILIRUBIN,URINE NEGATIVE (NEGATIVE); GLUCOSE, URINE NEGATIVE (NEGATIVE); KETONES,URINE NEGATIVE (NEGATIVE); LEUKOCYTE ESTERASE,URINE NEGATIVE (NEGATIVE); NITRITE,URINE NEGATIVE (NEGATIVE); PROTEIN,URINE NEGATIVE (NEGATIVE); UROBILINOGEN,URINE NEGATIVE mg/dL (<2.0)
[~2016-07-22 08:34] MED LIST: BUPIVACAINE HCL 0.25 % INJ/PF (2.5 MG/1 ML) 30 ML VIAL ONE; CEFAZOLIN 2 GM/D5W RTU 2 GM/50 ML RTUPB IV PRN; DEXAMETHASONE SOD PHOSPHATE INJ 4 MG/1 ML VIAL ONE; GLYCOPYRROLATE INJ 0.4 MG/2 ML VIAL ONE; KETOROLAC TROMETHAMINE 60 MG/2 ML SDV ONE; LACTATED RINGERS 1000 ML IV PRN; LIDOCAINE 0.5% INJ-PF (5 MG/ML) 50 ML SDV SUBCUT PRN; LIDOCAINE 2% INJ-PF (20 MG/ML) 10 ML AMPUL ONE; METOCLOPRAMIDE HCL INJ/PF 10 MG/2 ML SDV ONE; NEOSTIGMINE METHYLSULFATE 10 MG/10 ML VIAL ONE; ONDANSETRON HCL INJ/PF 4 MG/2 ML SDV ONE; SUCCINYLCHOLINE CHLORIDE INJ 200 MG/10 ML VIAL ONE; VECURONIUM BROMIDE INJ 10 MG VIAL IV ONE
[2016-07-22] MEDS ORDERED: ALBUTEROL SULFATE 0.083% NEB 2.5 MG/3 ML AMPUL NEB PRN (09:23)
[2016-07-22] MEDS ORDERED: SCOPOLAMINE HYDROBROMIDE 1.5 MG PATCH.TD72 TD PRN (09:23)
[2016-07-22] MEDS ORDERED: FAMOTIDINE INJ/PF 20 MG/2 ML SDV IV ONE (09:23)
[2016-07-22] MEDS ORDERED: SCOPOLAMINE HYDROBROMIDE 1.5 MG PATCH.TD72 ONE (09:25)
[2016-07-22] MEDS ORDERED: LIDOCAINE 2%/EPINEPHRINE INJ 20 ML VIAL ONE (10:50)
[2016-07-22] MEDS ORDERED: MIDAZOLAM 2 MG/2 ML INJ ONE (10:51)
[2016-07-22] MEDS ORDERED: FENTANYL CITRATE INJ/PF 250 MCG/5 ML AMPULE ONE (10:51)
[2016-07-22] MEDS ORDERED: ACETAMINOPHEN 100 ML IV ONE (10:52)
[2016-07-22] MEDS ORDERED: PROPOFOL INJ 200 MG/20 ML VIAL IV ONE (10:52)
[2016-07-22] MEDS ORDERED: EPHEDRINE SULFATE INJ 50 MG/1 ML AMPULE ONE (10:52)
[2016-07-22] MEDS ORDERED: FENTANYL CITRATE INJ/PF 100 MCG/2 ML AMPUL IV PRN ×3 (11:29)
[2016-07-22] MEDS ORDERED: PROMETHAZINE HCL INJ 25 MG/1 ML VIAL IV PRN ×2 (11:29)
[2016-07-22] MEDS ORDERED: OXYCODONE-ACETAMINOPHEN 5-325 MG TABLET PO PRN ×4 (11:29→12:38)
[2016-07-22] MEDS ORDERED: DIPHENHYDRAMINE HCL 50 MG/ML VIAL IV PRN (11:29)
[2016-07-22] MEDS ORDERED: MEPERIDINE HCL/PF INJ 25 MG/1 ML DISP.SYRIN IV PRN (11:29)
[2016-07-22] MEDS ORDERED: ONDANSETRON HCL INJ/PF 4 MG/2 ML SDV IV PRN ×2 (11:29→13:17)
[2016-07-22] MEDS ORDERED: MORPHINE SULFATE 10 MG/ML INJ IV PRN (11:29)
[2016-07-22] MEDS ORDERED: FENTANYL CITRATE INJ/PF 100 MCG/2 ML AMPUL ONE (12:33)
[2016-07-22] MEDS ORDERED: RINGERS SOLUTION,LACTATED 1,000 ML IV PRN (12:38)
[2016-07-22] MEDS ORDERED: IBUPROFEN 800 MG TABLET PO PRN (12:38)
[2016-07-22] MEDS ORDERED: HYDROMORPHONE HCL INJ/PF 2 MG/ML AMPULE IV PRN (12:39)
[2016-07-22] MEDS ORDERED: ONDANSETRON HCL INJ/PF 4 MG/2 ML SDV ONE (12:46)
[2016-07-22] MEDS ORDERED: IBUPROFEN INJ 800 MG/8 ML VIAL IV ONE (12:46)
[2016-07-22] MEDS ORDERED: METOCLOPRAMIDE HCL INJ/PF 10 MG/2 ML SDV ONE (12:46)
[2016-07-22] MEDS ORDERED: ONDANSETRON 4 MG TAB.RAPDIS PO PRN (13:16)
[2016-07-22] MEDS ORDERED: RINGERS SOLUTION,LACTATED 500 ML IV ONE (13:30)
[2016-07-22 14:43] VITALS: BP 117/76
--- NOTE | 2016-08-24 00:09 | Operative Report ---
Operative Report DATE OF SURGERY: 07/22/16 PREOPERATIVE DIAGNOSIS: Undesired Fertility, Multiparity POSTOPERATIVE DIAGNOSIS: CHAVA OPERATION: EUA, Paracervical Block, Operative Laparoscopy with partial bilateral salpingectomy SURGEON: ONEAL SANCHEZ ANESTHESIA: GA TISSUE REMOVED OR ALTERED: bilateral portions of fallopian tubes COMPLICATIONS: None ESTIMATED BLOOD LOSS: less than 5ml INTRAOPERATIVE FINDINGS: normal liver edge, normal bilateral tubes, normal bilateral ovaires, normal uterus PROCEDURE: Anesthesia: General Endotracheal tube Anesthesiologist: Jackeline Faulkner MD, Pushpa Freire CRNA Complications: None IV fluids: [1450ml] Urine output: [100ml clear urine] Indications: [31yo presented for counseling regarding contraception options and desired strongly to have permanent sterilization. She was counseled regarding the risks/benefits/alternatives and desires to proceed with planned procedure.] Procedure: The patient was taken to the operating room where general anesthesia was obtained without difficulty. The patient was then examined under anesthesia with findings as noted above with a small anteverted uterus and no adnexal masses. She was then placed in dorsal supine lithotomy position and prepped and draped in the normal sterile fashion. [place] speculum was then placed in the patient's vagina and the anterior lip of the cervix grasped with a single-tooth tenaculum. Paracervical block was then performed with 9ml of lidocaine with epineprhine in the usual fashion. A [place] uterine manipulator was then advanced into the uterus to provide a means of manipulation of the uterus. The speculum and tenaculum were then removed from the patient's cervix and vagina. Attention was then turned to the patient's abdomen where a 5 mm infraumbilical skin incision was then made. The Optiview trocar with 0 laparoscope was then advanced without difficulty under direct visualization with the Optiview trocar. This was performed while tenting the abdominal wall and these will fashion. Intraperitoneal placement was confirmed by the direct visualization. Pneumoperitoneum was then obtained with approximately 4 L carbon dioxide gas. Survey of the patient's abdomen and pelvis revealed findings as noted above. A second skin incision was then made approximately 3 cm superior 4 cm medial to the anterior superior iliac spine on the left and then a third skin incision was made approximately 3 cm superior to the lower incision. These incisions were made under direct visualization with the laparoscope. The second and third trochars were then advanced under direct visualization of the laparoscope at the sites. The right fallopian tube was then identified and followed out to the fimbriated end and the LigaSure device was used to clamp and cauterize and cut the mesosalpinx extending from the fimbriated end toward the cornua of the uterus thus removing the majority of the right fallopian tube. Attention was then turned to the left adnexa at which time the left fallopian tube was identified and followed out to the fimbriated end. LigaSure device was then used to clamp and cauterize and cut the mesosalpinx extending from the fimbriated end of the left fallopian tube toward the uterine cornua thus removing the majority of the left fallopian tube. The left and right fallopian tubes were removed easily through the trocar. All operative sites were visualized and noted to be hemostatic. The 2 additional trochars on the patient's left greater than removed under direct visualization. The 5 mm trocar was then removed after abdominal insufflation was removed. The skin at all trocar sites were closed with 3-0 Monocryl in a subcuticular fashion with overlying Dermabond. 2 grams of Ancef were given prior to this procedure. After completion of skin closure of the trocar sites attention was then turned to the vagina where the [place] uterine manipulator was removed and the bivalve speculum was replaced. Silver nitrate was applied to the tenaculum sites for hemostasis and the speculum was removed. Sponge lap needle and instrument counts were correct 3. The patient tolerated the procedure well and was taken to the recovery area awake and in stable condition.
== END 2016-07-22 14:35 | disposition home or self-care (01) ==
LOC: OROUT 08:34
PROVIDERS: ATTEND Student in an Organized Health Care Education/Training Program
PROC: 0UT74ZZ Resection of Bilateral Fallopian Tubes, Percutaneous Endoscopic Approach (ICD-10-PCS; principal; 2016-07-22 10:45)
DX: Z30.2 Encounter for sterilization (principal); D57.3 Sickle-cell trait; D64.9 Anemia, unspecified; F17.210 Nicotine dependence, cigarettes, uncomplicated; I10 Essential (primary) hypertension
CPT/HCPCS: 36415; 85027; 81005; 81025; 88302 ×2; 94640; 58661; J2250; J1100; J1885; J3010 ×2; J3490 ×5; J2765; J0330; J2405; S0020; J2704; S0028; J0690; J0131; J1741; 840